=== PATIENT | male | born 1950 ===

== ENCOUNTER 2017-02-03 14:02 | Inpatient (IN) | payer OTHER ==
[~2017-02-03] VITALS: Ht 172.7 cm; Wt 77.8 kg
[2017-02-03] VITALS (13 sets, daily range): BP systolic 92–200; BP diastolic 49–157; PULSE 78–141; RESP 18–26; O2SAT 94–100
[~2017-02-03 14:02] MED LIST: Vecuronium 1,000 mCg/mL 10 mL Inj IV ONE; fentaNYL-PF 50 mCg/mL 2 mL Inj IVPUSH ONE
[2017-02-03] MEDS ORDERED: fentaNYL-PF 50 mCg/mL 2 mL Inj ONE (14:03)
[2017-02-03] MEDS ORDERED: Propofol 10,000 mCg/mL 100 mL Inj ONE (14:07)
[2017-02-03] MEDS ORDERED: 0.9% Sodium Chloride 1,000 ML IV ONE ×3 (14:12→21:40)
--- NOTE | 2017-02-03 14:12 | ED.REPORT ---
HPI-Altered Mental Status Date of Service February 03, 2017 ED Provider: Dr. Carbajal Pt is a 66 year old male presenting to the ED via EMS after being found in the park in an altered mental status. He was found in the bushes at the park eating bushes and leaves. Pt told medics he was looking for his bike after he ate breakfast. When medics advised the pt that his bike was not in the bushes he became aggressive and agitated. Pt was given 300mg Ketamine by medics, and 5 of versed. Pt arrives to the ED unresponsive but agitated. Medics found a bag of marijuana in the pt's pocket. Pt has one prior visit in 2005 for EtOH intoxication. Nursing Notes Stated Complaint: MENTAL HEALTH EVAL Chief Complaint: Critical Care/Intubated Nursing Notes Reviewed: Yes General Time Seen by MD: 13:58 Chief Complaint Not acting right Hx Obtained From: EMS Unable to Obtain Hx: Mental status Arrived By: Ambulance Sudden in Onset?: Yes Onset Occurred: Onset unknown Symptom Duration: Duration unknown Past Medical History Past Medical History unknown Past Surgical History unknown Smoking History Unknown if Ever Smoker Ambulatory Status Independent Review of Systems Unable to Obtain ROS Patient condition, Mental status Physical Exam Physical Exam Notes: Unkempt agitated male, does not engage in interview, does not seem purposeful, mumbling verbalizations Initial Vital Signs Vital Signs (First) Date Time Temp Pulse Resp B/P Pulse Ox O2 Delivery O2 Flow Rate FiO2 02/03/17 14:13 39.4 141 26 200/105 100 Mechanical Ventilator TEMP:39.4 HR:144 BP:200/105 O2:98% RESP RATE:21 Initial VS: Reviewed Abdomen / GI: No distention Extremities: Vascular intact, Neuro intact, No swelling Skin: Warm, Dry General/Constitutional: Pt sedated Head / Eyes: Atraumatic, PERRL Neck: Atraumatic, No adenopathy Respiratory / Chest: Breath sounds NL, Breath sounds = bilat, No respiratory distress Respiratory: Pt intubated Cardiovascular: Heart sounds NL, No murmurs Heart Rate / Rhythm: Positive: Tachycardia ENT: Atraumatic, Airway patent dry MM Abdomen: Non-tender, No guarding exam unreliable due to mental status Back: Atraumatic, Inspection NL Skin: Color NL, No rash, Warm, Dry Upper Extremity / MS: No swelling, Neurologic intact, Vascular intact Lower Extremity / Pelvis / MS: No swelling, Neurologic intact, Vascular intact Interpretation & Diagnostics Lab Results Interpretation Result Diagram: 02/03/17 1500 02/03/17 1500 Test 02/03/17 14:14 02/03/17 15:00 02/03/17 15:50 Urine Color Yellow (YELLOW) Urine Appearance Clear (CLEAR,HAZY) Urine pH 5.5 (5.0-8.0) Urine Specific Mcdavid 1.025 (1.003-1.035) Urine Protein 30mg/dL (NEG,TRACE) Urine Glucose (UA) 100mg/dL (NEGATIVE) Urine Ketones 15mg/dL (NEGATIVE) Urine Occult Blood Negative (NEGATIVE) Urine Nitrite Positive (NEGATIVE) Urine Bilirubin Negative (NEGATIVE) Urine Urobilinogen 2.0mg/dL (NORMAL) Urine Leukocyte Esterase Negative (NEGATIVE) Urine RBC 0-2/hpf (0-2) Urine WBC 0-5/hpf (0-5) Urine Epithelial Cells Few/hpf (NONE-MOD) Urine Crystals None seen (NONE SEEN) Urine Bacteria Few/hpf (NONE-FEW) Urine Hyaline Casts None/lpf (NONE) Urine Granular Casts None seen (NONE SEEN) Urine Waxy Casts None seen (NONE SEEN) Urine Red Blood Cell Casts None seen (NONE SEEN) Urine White Blood Cell Casts None seen (NONE SEEN) Urine Mucus Present (None Seen) Urine Trichomonas None seen (NONE SEEN) Urine Yeast None (NONE SEEN) Urinalysis Comment None Urine Culture Reflexed Indicated White Blood Count 10.5th/mm3 (3.8-10.1) Red Blood Count 4.26mil/mm3 (4.40-5.80) Hemoglobin 12.1g/dL (13.8-17.2) Hematocrit 36.9% (41.0-50.0) Mean Corpuscular Volume 86.6fL (81-100) Mean Corpuscular Hemoglobin 28.4pg (27.0-35.0) Mean Corpuscular Hemoglobin Concent 32.8% (32.0-37.0) Red Cell Distribution Width 15.5% (12.3-15.4) Platelet Count 122bil/L (150-400) Neutrophils (%) (Auto) 82.3% (40-74) Lymphocytes (%) (Auto) 4.6% (14-46) Monocytes (%) (Auto) 12.7% (4-12) Eosinophils (%) (Auto) 0% (0-5) Basophils (%) (Auto) 0.1% (0-3) Sodium Level 137mEq/L (134-144) Potassium Level 4.0mEq/L (3.5-5.2) Chloride Level 99mEq/L (97-108) Carbon Dioxide Level 14mmol/L (18-29) Blood Urea Nitrogen 25mg/dL (8-27) Creatinine 1.04mg/dL (0.76-1.27) Estimat Glomerular Filtration Rate 76mL/min (>59) Glucose Level 108mg/dL (60-99) Lactic Acid Level 2.8mmol/L (0.4-2.0) Calcium Level 8.8mg/dL (8.5-10.1) Magnesium Level 1.9mg/dL (1.6-2.6) Total Bilirubin 2.4mg/dL (0.0-1.2) Aspartate Amino Transf (AST/SGOT) 218U/L (0-50) Alanine Aminotransferase (ALT/SGPT) 89U/L (0-44) Alkaline Phosphatase 109U/L (25-160) Total Creatine Kinase 1182U/L (21-232) Total Protein 7.4g/dL (6.4-8.4) Albumin 3.6g/dL (3.4-5.0) Salicylates Level < 3.0ug/mL (30-250) Acetaminophen Level < 15.0ug/mL Rx (10-25) Alcohols < 10mg/dL (0-10) ECG Interpretation ECG Interpretation: Sinus tachycardia. RBBB. Inferior Q waves. Time: 14:27 Interpreted by: ED physician Abnormal Rate: 130 (138) ABG Interpretation ABG Interpretation: 7.313/34/165/16.9 metabolic acidosis X-Ray Chest Interpretation Chest Xray Interpretation: IMPRESSION: ET tube approximately 1.8 cm superior to the carlos and could be pulled back approximately 2 cm. Dictated by: Lesley Cee MD, PhD on 02/03/2017 at 14:39 View: Portable, 1 view Interpretation / Wet Read by: Interpret - Radiologist CT Head Interpretation IMPRESSION: No acute intracranial disease process. Dictated by: Lesley Cee MD, PhD on 02/03/2017 at 14:56 Study: Head CT no contrast Interpretation / Wet Read by: Interpret - Radiologist Procedures Intubation Intubation Procedure: Equal breath sounds, quiet over the stomach post procedure. Time: 14:09 Procedure Performed by: ED physician Consent / Setup / Site Prep: No consent - emergent, Time-out performed, Oxygen administered, Pulse oximeter applied, register clerk applied, Hand hygiene observed, Stand sterile technique Patient Position: Neutral position Procedural Sedation/Analgesia: Analgesia: Fentanyl (100mcg) Neuromuscular Agent: Succinylcholine (140) ET Confirmation: Direct visualization Secured / Marked: Tube marked at teeth (23) Post-Procedure: Condition improved, Tolerated procedure well, Patient stable Lumbar Puncture Text / Dict Note: Clear CSF. Time: 15:25 Procedure Performed by: ED physician Consent / Setup / Site Prep: No consent - emergent, Time-out performed, Hand hygiene observed, Stand sterile technique, Sterile drapes applied, Patient left lateral Skin Preparation Agent: Betadine Local Anesthesia: Lidocaine 1% LP Needle Gauge: 22 gauge Inserted Needle at: L3 L4 Post-Procedure / Complications: Antibiotic oint applied, Dressing applied, No complications, Tolerated procedure well, Patient stable Re-Eval/Medical Decision Med Decision/Clinical Course Face to face assessment on arrival before being placed in restraints. Urine toxicology shows positive for marijuana, methamphetamine, and amphetamines 66-year-old male with presenting with acute agitation and bizarre behavior. This seems likely related to amphetamine abuse, unfortunately he is completely undesirable by exam or history. Also noted to be febrile. No source is presently identified, CSF labs are pending does have findings consistent with urinary tract infection however is very unimpressive does not have a pneumonia on chest x-ray. He was intubated shortly after arrival due to his acute intractable agitation, hydrated aggressively with concern for rhabdomyolysis and sepsis. Blood cultures have been obtained and they been covered with Rocephin and vancomycin. He has a mildly elevated AST ALT and bilirubin, because of his completely undesirable abdomen I ordered an ultrasound, the patient was moved to the ICU with this pending, this is discussed with Dr. Walter. Re-Evaluation/Progress #1: Time of Eval: 14:01 Patient Status: Condition improved Re-Evaluation/Progress Note: Pt put in restraints and intubated. 140 succ, 100micrograms fentanyl. Re-Evaluation/Progress #2: Time of Eval: 14:24 Patient Status: Condition improved Re-Evaluation/Progress Note: Pt getting Propofol drip placed. Re-Evaluation/Progress #3: Time of Eval: 14:33 Patient Status: Condition improved Re-Evaluation/Progress Note: Checked tube placement with x ray. Re-Evaluation/Progress #4: Time of Eval: 15:14 Patient Status: Condition improved Re-Evaluation/Progress Note: Pt quietly sedated. Will perform lumbar puncture. Consultation : Referral / Consult Name: Onel Walter MD Consulted With: Hospitalist Call Returned at: 16:11 Lowerator Operator: Will see patient, Agrees with plan, Accepts admit Note: Get an ultrasound. Counseled Regarding: Diagnosis, Lab results, Need for follow-up, When/why to return to ED Patient Discharge & Departure Impression: Primary Impression: Altered mental status Altered mental status type: unspecified Qualified Code: R41.82 - Altered mental status, unspecified Additional Impressions: Rhabdomyolysis Rhabdomyolysis type: non-traumatic Qualified Code: M62.82 - Rhabdomyolysis Amphetamine abuse Disposition: ADMITTED TO HOSPITAL Discharge Condition All VS Reviewed: Yes Condition: Improved Crit Care Except Billable Proc Time Spent: 30-74 minutes Services Performed: Patient management by me, Time spent at bedside, Reviewing test results, Reviewing imaging, Discussing patient care, Documentation in record Scribe Attestation Portions of this note were transcribed by Kelly Herrera. I, Dr. Carbajal personally performed the history, physical exam and medical decision-making; I reviewed and confirmed the accuracy of the information in the transcribed note. Signed by : Wendy Gao, 02/03/17 at 1626. Mario Carbajal MD February 03, 2017 14:12 KELLY HERRERA February 03, 2017 14:22
[2017-02-03] MEDS ORDERED: Propofol Inj 1,000,000 MCG in IV Premix 1 EACH IV SCH (14:15)
[2017-02-03] MEDS ORDERED: Vecuronium 1,000 mCg/mL 10 mL Inj ONE (14:31)
[2017-02-03 14:32] LABS: APPEARANCE,URINE CLEAR (CLEAR,HAZY); COLOR,URINE YELLOW (YELLOW); OCCULT BLOOD,URINE NEGATIVE (NEGATIVE); PH,URINE 5.5 (5.0-8.0)
--- NOTE | 2017-02-03 14:41 | DRSVH ---
PROCEDURE: X-RAY CHEST ONE VIEW, PORTABLE ([id number]) INDICATIONS: post intubation TECHNIQUE: One view of the chest was acquired. COMPARISON: None. FINDINGS: Surgical changes and devices: ET tube projects approximately 1.8 cm superior to the carlos. G-tube crosses the GE junction. Lungs and pleura: No pleural effusions or pneumothorax. Lungs are clear. Mediastinum: Mediastinal contours appear normal. Heart size is normal. Bones and chest wall: No suspicious bony lesions. Overlying soft tissues appear unremarkable. IMPRESSION: ET tube approximately 1.8 cm superior to the carlos and could be pulled back approximate ly 2 cm. Dictated by: Lesley Cee MD, PhD on 02/03/2017 at 14:39 Approved by: Lesley Cee MD, PhD on 02/03/2017 at 14:40
[2017-02-03] MEDS: Propofol Inj 1,000,000 MCG in IV Premix 1 EACH IV SCH ×4 (14:50→22:48)
--- NOTE | 2017-02-03 15:01 | DRSVH ---
PROCEDURE: CT BRAIN WITHOUT CONTRAST ([id number]) INDICATIONS: altered mental status TECHNIQUE: Noncontrast 4.5 mm thick angled axial sections acquired from the foramen magnum to the vertex, with c oronal reformats. COMPARISON: None. FINDINGS: Image quality: Excellent. CSF spaces: Basal cisterns are patent. No extra-axial fluid collections. The ventricles are symmet kenyetta in size and shape. Brain: No intracranial bleeds or masses. There is cerebral volume loss for age, with resultant vent ricular and sulcal prominence. There are periventricular and deep white matter chronic small vessel ischemic changes. There is intracranial internal carotid artery atherosclerosis. Skull and face: Calvarium and visualized facial bones appear intact, without suspicious lesions. Sinuses: Visualized sinuses and mastoids are clear. IMPRESSION: No acute intracranial disease process. Dictated by: Lesley Cee MD, PhD on 02/03/2017 at 14:56 Approved by: Lesley Cee MD, PhD on 02/03/2017 at 14:59
--- NOTE | 2017-02-03 15:02 | ABG ---
DateTimeAnalyzed 14:58:00 -_ pH ____7.313 - 7.350 7.450 pCO2 ___34.4__ -mmHg 35.0 45.0 pO2 165 -mmHg 69.0 116 HCO3- ___16.9__ -mmol/L 22.0 26.0 ABE ___-8.0__ -mmol/L -2.0 2.0 tHb ___12.0__ -g/dL O2Hb ___97.0__ -% COHb ____0.7__ -% MetHb ____1.2__ -% sO2 ___98.9__ -% 25.0 FIO2 ___60.0__ -% Drawn By LT - Date/Time Notified____ 15:02:00 -_ Notified By LT - Notified Whom _DR SLACK - B 763 -mmHg tO2 ___16.7__ -Vol% Juliano test _Positive -
[2017-02-03 15:27] LABS: Mean Corpuscular Hemoglobin 28.4 pg (27.0-35.0); Mean Corpuscular Volume 86.6 fL (81-100)
[2017-02-03 15:28] LABS: BASOPHILS % (AUTO) 0.1 % (0-3); EOSINOPHILS % (AUTO) 0 % (0-5); MONOCYTES % (AUTO) 12.7 % (4-12); NEUTROPHILS % (AUTO) 82.3 % (40-74); Platelet Count 122 bil/L (150-400)
[2017-02-03 15:43] LABS: Creatine Kinase 1182 U/L (21-232); Magnesium 1.9 mg/dL (1.6-2.6)
[2017-02-03] MEDS ORDERED: Vancomycin Inj 1,000 MG in IV Premix 1 EACH IV ONE (15:55)
[2017-02-03] MEDS ORDERED: cefTRIAXone Inj 2,000 MG in Dextrose 5% Minibag Plus 50 ML IV ONE (15:55)
[2017-02-03] MEDS ORDERED: Ondansetron 2 mg/mL 2 mL Inj IVPUSH PRN ×2 (16:25→17:45)
--- NOTE | 2017-02-03 17:03 | PCM.HPMED ---
Subjective Date of Service February 03, 2017 Primary Provider: Admitting Physician: Onel Walter MD Primary Care Physician: Thaddeus Attending Physician: Onel Walter MD Admit Status: From the Emergency Department Chief Complaint: Altered mental status History of Present Illness: Mr. Baldemar Patton is a 66-year-old gentleman with known past medical history significant only for alcohol abuse who was brought to the [facility] Emergency Department after being found in a local park eating shrubbery. History was obtained from Emergency Department Physician report only, as patient was sedated, paralyzed, and intubated at time of our meeting. Per that record, the patient told medics that he was looking for his bicycle after eating breakfast. He then became belligerent and was sedated with 300 mg ketamine and 5 mg of midazolam. He arrived in the Emergency Department unresponsive and agitated. Patient was subsequently paralyzed and intubated for his safety and for the safety of staff while he underwent further evaluation for the cause of his acute encephalopathy. Medics reported finding a bag of what looked like marijuana in his pocket. Mr. Bentley's only other visit to [facility] was in 2005 for acute alcohol intoxication, fall, and left elbow injury. . Review of Systems: Unable to obtain due to patient's encephalopathy. . Home Medications Unknown and unable to review due to patient's acute encephalopathy initially and current intubation and sedation. . PMH Unknown and unable to review due to patient's acute encephalopathy initially and current intubation and sedation. . Surgical History Unknown and unable to review due to patient's acute encephalopathy initially and current intubation and sedation. . Family History Unknown and unable to review due to patient's acute encephalopathy initially and current intubation and sedation. . Social History Occupation: Unknown Hx Alcohol Use: Yes (In 2006, at least; current status unknown) Hx Substance Use: Yes (Bedside urine tox dip positive for marijuana, methamphetamine, and amphetamine) Smoking Status: Unknown if Ever Smoker Living Arrangement: Other (Unknown) Exam Vital Signs Vital Sign - Last Date Time Temp Pulse Resp B/P Pulse Ox O2 Delivery O2 Flow Rate FiO2 02/03/17 16:03 110 24 140/84 94 Mechanical Ventilator 02/03/17 15:30 37.8 Exam General: Intubated, sedated, disheveled near elderly gentleman HEENT: Normocephalic, atraumatic. External ears without defect. Anicteric sclerae, moist conjunctivae, and no lid lag. Neck: No jugular venous distension. No bruits. No lymphadenopathy or thyromegaly. Cardiovascular: Regular rate and rhythm with no murmurs, rubs, or gallops appreciated Pulmonary: Clear to auscultation bilaterally with no crackles, wheezes, or rhonchi. Ventilated. Abdomen: Bowel tones present. Soft, nontender, nondistended. No hepatosplenomegaly or masses appreciated. Extremities: No clubbing, cyanosis, edema, or lymphadenopathy appreciated. Skin: Normal temperature, turgor, and texture; numerous scratches, cuts, patches of discoloration. Multiple dirt caked areas. Neurological: Unable to assess due to sedated condition. Psychiatric: Unable to assess due to sedated condition. Lab and Diagnostics Labs Total bilirubin: 2.4 AST: 218 ALT: 89 Total creatine kinase: 1182 Albumin: 3.6 Negative salicylates, acetaminophen, and alcohols Urinalysis notable for positive nitrite . Result Diagram: 02/03/17 1500 02/03/17 1500 Microbiology Blood, urine, and cerebrospinal fluid cultures pending. . X-Rays, CTs and MRIs CT BRAIN WITHOUT CONTRAST IMPRESSION: No acute intracranial disease process. Dictated and approved by: Lesley Cee MD, PhD on 02/03/2017 at 14:56 X-RAY CHEST ONE VIEW, PORTABLE FINDINGS: Surgical changes and devices: ET tube projects approximately 1.8 cm superior to the carlos. G-tube crosses the GE junction. Lungs and pleura: No pleural effusions or pneumothorax. Lungs are clear. Mediastinum: Mediastinal contours appear normal. Heart size is normal. Bones and chest wall: No suspicious bony lesions. Overlying soft tissues appear unremarkable. IMPRESSION: ET tube approximately 1.8 cm superior to the carlos and could be pulled back approximately 2 cm. Dictated and approved by: Lesley Cee MD, PhD on 02/03/2017 at 14:39 . 12-lead ECG ECG pending . Assessment & Plan Mr. Baldemar Patton is a 66-year-old gentleman with history of alcohol abuse and current polysubstance use who was brought to the [facility] Emergency Department after being found violating shrubbery. Patient was aggressive and combative; subsequently sedated, paralyzed, and intubated for his and staff safety during further evaluation of acute encephalopathy. Acute encephalopathy, present on admission. Active. -Likely secondary to polysubstance use, including amphetamine, methamphetamine, and marijuana -Ongoing evaluation of hepatic encephalopathy, including abdominal ultrasound and ammonia level -Infectious etiology less likely given presenting labs; further evaluation pending and empiric antibiotics (ceftriaxone and vancomycin) continuing -Attempt to wake patient tomorrow for possible extubation -Monitor closely and treat as necessary for withdrawal symptoms Polysubstance use, present on admission. Active. -As above, amphetamine, methamphetamine, and marijuana present on urine drug screen -Continue supportive care during episode of acute intoxication -Chemical dependency screening and counseling as able/desired Rhabdomyolysis, present on admission. Active. -Meets criteria with creatine kinase elevated 5 times normal -Continue aggressive fluid resuscitation -Monitor renal function closely Elevated liver enzymes, present on admission. Active. -Likely secondary to substance abuse and/or viral hepatitis -Ultrasound and laboratory testing pending, including viral hepatitis panel and PT/INR Lactic acidosis on the present on admission. Active. -Likely secondary to acute intoxication, medication administration -Continue aggressive fluid resuscitation -Monitor closely until resolution Leukocytosis, mild, present on admission. Active. -Likely due to margination related to activity surrounding acute intoxication; less likely infectious -Continue to monitor closely; further workup pending Anemia, present on admission. Active. -Likely multifactorial, due to possible alcohol dependence, poor nutritional status -Continue to monitor with further evaluation and treatment as needed Thrombocytopenia, present on admission. Active. -Possibly secondary to ongoing alcohol dependence -Continue to monitor closely History of alcohol abuse, present on admission. -Previous Emergency Department in 2005 was for acute alcohol intoxication and injury related to same -Elevated liver enzymes consistent with continuous alcohol dependence -Low threshold for the addition of benzodiazepine for potential withdrawal Multiple skin lesions, present on admission. Active. -Full assessment by Nursing pending -Wound Care as needed -GI prophylaxis with H2 denise -Nothing by mouth currently -DVT prophylaxis as below -No acetaminophen ordered, given elevated liver function tests Patient status: Patient was admitted under inpatient status with expected length of stay greater than 2 midnights for complexity of treatment plan, risk of adverse event, and severity of presenting symptoms. . Pain Evaluation: Adequate Pain Control GI Prophylaxis: H2 denise VTE Prophylaxis Indicated: CCU Admission VTE Prophylaxis: Sub-Q Heparin (Unfractionated) VTE Mechanical Devices: Intermittant Pneumatic CD Resuscitation Status: CPR: Attempt Resuscitation Time spent 60 minutes of critical care time was provided by me for evaluation and patient stabilization. . Onel Walter MD February 03, 2017 17:02
[2017-02-03 17:13] LABS: APPEARANCE,CSF CLEAR (CLEAR); COLOR,CSF COLORLESS (COLORLESS); WHITE BLOOD CELL,CSF 1 /mm3 (0-5)
--- NOTE | 2017-02-03 17:18 | ABG ---
DateTimeAnalyzed 16:55:00 -_ pH ____7.339 - 7.350 7.450 pCO2 ___31.3__ -mmHg 35.0 45.0 pO2 131 -mmHg 69.0 116 HCO3- ___16.4__ -mmol/L 22.0 26.0 ABE ___-8.0__ -mmol/L -2.0 2.0 tHb ___11.3__ -g/dL O2Hb ___97.4__ -% COHb ____0.5__ -% MetHb ____1.1__ -% sO2 ___99.0__ -% 25.0 FIO2 ___50.0__ -% Drawn By RC - B 762 -mmHg tO2 ___15.7__ -Vol%
[2017-02-03] MEDS ORDERED: Senna-Docusate 8.6-50 mg Tablet PO PRN (17:45)
[2017-02-03] MEDS ORDERED: Alum-Mag Hydrox-Simeth 30 mL Suspension PO PRN (17:45)
[2017-02-03] MEDS ORDERED: Polyethylene Glycol (PEG) 17 Gm Powder PO PRN (17:45)
[2017-02-03] MEDS ORDERED: fentaNYL-PF 50 mCg/mL 2 mL Inj IVPUSH PRN (17:50)
--- NOTE | 2017-02-03 18:15 | NUR ---
ADMIT Patient intubated in ER and transferred to CCU 2013. Patient appears to be homeless, unknown family or pharmacy. Admit was done as such with limited information, unable to gather information from patient at this time.
--- NOTE | 2017-02-03 18:19 | NUR ---
Admit to CCU Pt arrived to CCU at 1645, pt intubated, sedated with propofol; restrained to BUE soft restraints BLE locking restraints. BLE restraints d/c'd upon arrival, bilateral wrist restraints remain in place. Pt extremely agitated with minimal stimulation, requiring multiple boluses of propofol. Pt reaches for ETT, lacey, and PIVs when not sedated adequately. Vent settings: 50%, 5, 500, 18; SpO2 98%. Tele: SR/ST with BBB, rate 90s to low-100s. Lacey draining dark lilia urine. Pt with scratches/scrapes all over body, no drainage from them. BLE pitting edema from ankles to just below knees. Palpable DPs.
[2017-02-03 19:06] LABS: Magnesium 2.1 mg/dL (1.6-2.6)
[2017-02-03] MEDS: fentaNYL 2,500 mCg/250 mL 2,500 MCG in IV Premix 1 EACH IV PRN (19:10)
[2017-02-03 19:30] LABS: INR 1.25 ratio
--- NOTE | 2017-02-03 19:46 | PCM.PHAPRO ---
Progress Date of Service: February 03, 2017 Altered mental status Dx: empiric vancomycin PMH: alcohol abuse, anemia goal 15-20 start vancomycin 750mg IV q12h draw next vancomycin trough at 430AM on 02/05 per pharmacy Kenny Yi February 03, 2017 19:46
[2017-02-03] MEDS: cefTRIAXone Inj 2,000 MG in Dextrose 5% Minibag Plus 50 ML IV SCH (20:18)
[2017-02-03] MEDS: Chlorhexidine 0.12% 15 mL Oral Solution MT SCH ×2 (20:28→23:53)
[2017-02-03] MEDS: 0.9% Sodium Chloride 1,000 ML IV SCH (21:46)
[2017-02-04] VITALS (11 sets, daily range): BP systolic 100–123; BP diastolic 48–63; PULSE 67–73; RESP 18; O2SAT 98–100
[2017-02-04] MEDS: Propofol Inj 1,000,000 MCG in IV Premix 1 EACH IV SCH ×3 (02:30→10:03)
--- NOTE | 2017-02-04 04:22 | NUR ---
Agitation/Hypotension, low uo P: Pt had intermittent agitation with any activity, initially on propofol gtt only, SBP 90's, map 58-60, urine output low from lacey. i: titrated up propofol gtt (inadequate) and added fentanyl gtt, Notified Dr. Veronica with new orders, given 1L NS Bolus and started on IVF maintenance @ 125 cc/hr. E: MAP improved >65, increased uo from lacey. S: bilateral soft wrist restraints on.
[2017-02-04] MEDS ORDERED: Vancomycin Inj 750 MG in 0.9% Sodium Chloride 250 ML IV SCH (05:00)
[2017-02-04] MEDS: Chlorhexidine 0.12% 15 mL Oral Solution MT SCH ×5 (05:06→19:59)
--- NOTE | 2017-02-04 05:23 | ABG ---
DateTimeAnalyzed 05:18:00 -_ pH ____7.416 - 7.350 7.450 pCO2 ___28.0__ -mmHg 35.0 45.0 pO2 210 -mmHg 69.0 116 HCO3- ___17.7__ -mmol/L 22.0 26.0 ABE ___-5.5__ -mmol/L -2.0 2.0 tHb ____9.9__ -g/dL O2Hb ___97.8__ -% COHb ____0.7__ -% MetHb ____1.1__ -% sO2 ___99.6__ -% 25.0 FIO2 ___50.0__ -% PRVC 18 - PEEP ____5.0__ -cmH2O Set_RR ___18.0__ -b/min Vt __500.0__ -L Drawn By MM - Date/Time Notified____ 05:22:00 -_ Spontaneous_RR ___18.0__ -b/min Oxygen Device 1 VENTILATOR - Notified By MM - Notified Whom BIJAN,HARDEN, RN.____ - B 762 -mmHg tO2 ___14.1__ -Vol%
[2017-02-04] MEDS: 0.9% Sodium Chloride 1,000 ML IV SCH ×3 (05:50→22:06)
[2017-02-04] MEDS: fentaNYL 2,500 mCg/250 mL 2,500 MCG in IV Premix 1 EACH IV PRN (07:41)
[2017-02-04] MEDS ORDERED: Vancomycin Dose per Pharmacist XX SCH (08:30)
[2017-02-04 08:58] LABS: Mean Corpuscular Hemoglobin 28.3 pg (27.0-35.0); Mean Corpuscular Volume 88.5 fL (81-100); Platelet Count 73 bil/L (150-400)
[2017-02-04 09:03] LABS: BASOPHILS % (AUTO) 0.2 % (0-3); EOSINOPHILS % (AUTO) 0.4 % (0-5); MONOCYTES % (AUTO) 10.7 % (4-12)
--- NOTE | 2017-02-04 09:03 | DRSVH ---
PROCEDURE: US ABDOMEN INDICATIONS: elevated bili, critical illness TECHNIQUE: Real-time scanning was performed of the abdominal and retroperitoneal organs, with image documentatio n. COMPARISON: None. FINDINGS: Liver length: 17.41 cm Gallbladder Wall Thickness: 2.70 mm CHD: 3.40 mm CBD: 5 mm Spleen length: 12.30 cm Right kidney length: 11.37 cm Left kidney length: 11.38 cm Aorta(Proximal): 2.48 cm Aorta(Mid): Obscured Aorta(Distal): 2.31 cm Liver: Liver is normal in size. Diffusely increased hepatic echotexture. Gallbladder: Cholelithiasis and gallbladder sludge. Although no gallbladder wall measurement was obta ined, visually the gallbladder wall is normal. No pericholecystic fluid. Sonographic Hendricks's sign no t obtained. Biliary ducts: Intrahepatic bile ducts are non-dilated. Extrahepatic bile duct caliber is normal. Normal is 6-7 mm or less in diameter, or 10 mm or less post-cholecystectomy. Pancreas: Visualized portions of the pancreas are sonographically normal. Spleen: Spleen is normal in size and homogeneous in echotexture. Kidneys: Kidneys are normal in size and echotexture. No hydronephrosis or nephrolithiasis. No jabari d masses. Benign 2.5 cm simple right renal cyst. Aorta: Visualized aorta is normal in caliber at less than 3 cm. Iliacs: Proximal common iliac arteries are normal in caliber at less than 2.5 cm. IVC: Intrahepatic inferior vena cava is patent. Miscellaneous: No free abdominal fluid. IMPRESSION: 1. Study is limited. There is cholelithiasis with no sonographic evidence of acute cholecystitis. 2. Fatty infiltration of an otherwise sonographically normal liver. Dictated by: Claudio Arambula M.D. on 02/04/2017 at 8:59 Approved by: Claudio Arambula M.D. on 02/04/2017 at 9:02
[2017-02-04 09:37] LABS: Magnesium 2.1 mg/dL (1.6-2.6); Phosphorus 2.4 mg/dL (2.5-4.9)
[2017-02-04] MEDS: LORazepam 100 mg/100 mL NS 100 MG in IV Premix 1 EACH IV SCH (10:03)
--- NOTE | 2017-02-04 10:33 | CONS ---
[address] [address] CONSULTATION REPORT PATIENT: CHELSY BASURTO : 1950 MR#: [id number] ADMIT: 02/03/2017 JOB ID: [id number] DATE OF SERVICE: 02/04/2017 REQUESTING PHYSICIAN: Patito Herrera DO REASON FOR CONSULTATION: Polysubstance overdose. HISTORY OF PRESENT ILLNESS: A 66-year-old, male, found eating grass and weeds at a local park. He was described as being agitated. Given ketamine and Versed. Intubated for his safety and the safety of the staff while undergoing further evaluation. Described as finding a bag of what appeared to be marijuana in his pocket. No further history is available. None is available from the patient who is currently sedated and intubated on a ventilator. Did require hospitalization at [facility] in 2005 for acute alcohol intoxication and fall. REVIEW OF SYSTEMS: Unable to obtain. MEDICATIONS: Unable to obtain. PAST MEDICAL HISTORY: Unable to obtain. No other history available. OBJECTIVE: Temperature 36.8. Pulse low 70s. Respiratory rate 18 with ventilator set at 18. Blood pressure 100/48. O2 sat on FiO2 35%, PEEP of 5 is 98%. The patient has received about 4.5 L since his admission last evening. General appearance disheveled, malodorous male, sedated on the ventilator. Does have some purposeless movements when examined. Eyes pupils pinpoint. No scleral icterus. Nose and throat could not be examined. Chest fairly good breath sounds bilaterally. Lung marti clear. Heart regular rhythm. Heart tones normal, no S3 or murmur. Abdomen is soft, nondistended. Liver edge felt about 2 cm below the right costal margin. Spleen not palpable. Extremities excoriations on the legs. Cleanliness issues. No tracks. LABORATORY DATA: White count of 10,500 twelve hours ago, currently 5.5, with 69 polymorphonuclears, 19 lymphs, 10 monocytes. Hemoglobin 10.1 down from 12.1 in the past 12 hours. Platelet count has dropped from 122-73,000 in that time as well. Lab on admission shows a sodium 137, potassium 4, chloride 99, CO2 is 14, BUN 25, creatinine 1. Glucose 108. Lactic acid is 2.8. Calcium 8.8 with albumin 3.6, magnesium 1.9. Total bilirubin mildly elevated 2.4. AST moderately elevated 218. ALT mildly elevated at 89. Alkaline phosphatase normal at 109. CK is 1182. Total protein 7.4 with albumin of 3.6. Pre-albumin is 9. Procalcitonin 0.3. ProTime is 13.4 seconds with an INR of 1.25. Screen for salicylates, acetaminophen, and alcohol are all negative with undetectable levels present. Spinal tap shows white cell count 1. CSF glucose was 73. CSF total protein was 26. Urine for Legionella antigen is negative. DIAGNOSTIC STUDIES: Chest x-ray shows the lungs to be clear. Cardiac silhouette is normal. The endotracheal tube 1.8 cm above the carlos. Brain CT shows no acute intracranial disease processes. Some cerebral volume loss for age. Abdominal ultrasound shows cholelithiasis and gallbladder sludge. No pericholecystic fluid. Visually gallbladder wall was normal. Intrahepatic bile ducts are nondilated and extrahepatic bile duct caliber is normal. Pancreas visualized as normal as is spleen and kidneys. ASSESSMENT: 1. Polysubstance overdose. Toxicology screen positive for amphetamine, methamphetamine, and marijuana. However, the patient has an agitated delirium most consistent with methamphetamine overdose. The treatment is supportive at this point. Lactate has been monitored and has fallen to 0.8. Will need to follow the rhabdomyolysis. a. Given the alcohol history of alcohol abuse and the probable methamphetamine overdose I think benzodiazepines would be helpful to control his behavior. Apparently was getting propofol which was not working. Fentanyl was added to control his behavior. Might do better with the benzodiazepines. b. Need to follow his electrolytes as you are doing. Also follow the CK and lactate. Also need to keep an eye on magnesium and potassium as well as probably phosphorus. 2. Elevated ammonia level. Probably speaks to some degree of hepatic encephalopathy. Lactulose is being added to his regimen. 3. Ventilator support. Agitated in order to safely control his behavior as well as ability to sedate him. Doing reasonably well. He is being over ventilated just a little bit, probably not significantly so and I do not know that we need to change anything at this point. Would merely monitor his acid-base status as we proceed. PLAN: 1. Consider using benzodiazepines instead of propofol. Consider lorazepam in the face of probable liver dysfunction, maybe starting infusion at 2 mg an hour with 0.5-2 mg boluses q. 20-30 minutes until appropriate dose established. 2. Serial CK. 3. Serial blood gases. 4. Sputum for Gram stain, C and S pending. 5. Thiamin. Thank you very much, Dr. Herrera, for asking us to see this most unfortunate individual. Will follow his respiratory and metabolic status closely along with you.
--- NOTE | 2017-02-04 10:49 | NUR ---
NUTRITION ASSESSMENT Assess: 66 YO M admitted to CCU for AMS, rhabdomyolysis, and amphetamine abuse. Pt required mechanical ventilation. Pt has been NPO X 1 day. Possible change from Propofol to benzodiazepines. PMHX: Unknown, ETOH abuse. DIET: NPO. LABS: Cr 0.61, Ca 7.9, Phos 2.4, AST 178, ALT 66, Alb 2.6 MEDICATIONS: Reviewed. Fentanyl, Propofol at 21.6 ml/hr providing 570 kcal/day. GI: No BM noted. SKIN: No issues noted. ANTHROPOMETRICS: Wt: 76.6 kg, BMI 25.7 kg/m2, Admit wt: 76.6 kg. ESTIMATED NEEDS: Vent Calories: 3359-8327 kcal/day (20-25 kcal/kg BW) Protein: 115-138 g/day (1.5-1.8 g/kg BW) Fluids: 5194-6553 ml/day (25-30 ml/kcal) NUTRITION DIAGNOSIS: 1) Inadequate oral intake related to decreased ability to consume sufficient energy as evidenced by NPO/Vent status. INTERVENTION: 1) If pt remains intubated, recommend enteral nutrition of Jevity 1.5 starting at 10 ml/hr, once tolerance established, advance 10 ml q 4 hr to goal rate of 55 ml/hr. At goal TF will provide 1815 kcal, 77 g protein; meeting 100% calorie, 67% protein needs. Consider adding 1 Prosource protein packet 4 X per day to provide 121 g protein; meeting 100% protein needs. Adjust TF goal based on Propofol rate. MONITOR/EVALUATE: NPO/Vent status, nutrition support, Propofol, POC, labs, GI/nutrition status. Follow per high nutrition risk guidelines.
[2017-02-04] MEDS: Lactulose 20 Gm/30 mL 30 mL Syrup TUBE SCH ×2 (10:58→19:59)
[2017-02-04] MEDS ORDERED: Potassium Phos (mEq) Inj 40 MEQ in Dextrose 5% 500 ML IV ONE (11:20)
--- NOTE | 2017-02-04 11:36 | PCM.PNMED ---
Subjective Date of Service February 04, 2017 Subjective Mr. Baldemar Patton is a 66-year-old gentleman with history of alcohol abuse and current polysubstance use who was brought to the [facility] Emergency Department after being found violating shrubbery. Patient was aggressive and combative; subsequently sedated, paralyzed, and intubated for his and staff safety during further evaluation of acute encephalopathy. Admitted to CCU intubated and sedated. Per nursing, patient with intermittent agitation nonresponsive to increase in propofol and fentanyl drip started. Patient hypotensive with SBP in the 90s, MAP 58-60 and low urine output. Received 1L bolus of NS and started on maintenance fluids at 125mls/hr with good response. Exam Vital Signs Vital Sign - Last Date Time Temp Pulse Resp B/P Pulse Ox O2 Delivery O2 Flow Rate FiO2 02/04/17 07:28 71 100/48 98 35 02/04/17 04:03 36.8 18 Mechanical Ventilator Intake and Output 02/03/17 02/03/17 02/04/17 Cumulative From/Thru 15:00 23:00 07:00 02/03/17 14:04 - 02/04/17 05:48 Intake Total 2000 ml 259 ml 2416 ml 4675 ml Output Total 350 ml 475 ml 825 ml Balance 2000 ml -91 ml 1941 ml 3850 ml Intake IV Total 2000 ml 259 ml 2416 ml 4675 ml Output Urine Total 350 ml 450 ml 800 ml Gastric Drainage Total 25 ml 25 ml # Bowel Movements 0 0 Exam General: Intubated and sedated. HEENT: Normocephalic, atraumatic. Anicteric sclerae. Oral mucosa dry/pink Neck: No jugular venous distension, lymphadenopathy or thyromegaly. Cardiovascular: Regular rate and rhythm with no murmurs, rubs, or gallops appreciated Pulmonary: Clear to auscultation bilaterally with no crackles, wheezes, or rhonchi. Abdomen: Soft, nondistended, no hepatosplenomegaly appreciated, bowel tones present Extremities: No edema or cyanosis, multiple scratches, cuts lower ext bilaterally. No erythema or warmth. Skin: Normal temperature, turgor; no rashes or ulcerations. Neurological: Sedated, unable to assess. Psychiatric: Sedated, unable to assess. IVs and Medications Medications Reviewed: Medications were reviewed in detail Lab and Diagnostics Laboratory Tests Test 02/03/17 14:14 02/03/17 15:00 02/03/17 15:50 02/03/17 18:20 Urine Color Yellow (YELLOW) Urine Appearance Clear (CLEAR,HAZY) Urine pH 5.5 (5.0-8.0) Urine Specific [place] 1.025 (1.003-1.035) Urine Protein 30mg/dL (NEG,TRACE) Urine Glucose (UA) 100mg/dL (NEGATIVE) Urine Ketones 15mg/dL (NEGATIVE) Urine Occult Blood Negative (NEGATIVE) Urine Nitrite Positive (NEGATIVE) Urine Bilirubin Negative (NEGATIVE) Urine Urobilinogen 2.0mg/dL (NORMAL) Urine Leukocyte Esterase Negative (NEGATIVE) Urine RBC 0-2/hpf (0-2) Urine WBC 0-5/hpf (0-5) Urine Epithelial Cells Few/hpf (NONE-MOD) Urine Crystals None seen (NONE SEEN) Urine Bacteria Few/hpf (NONE-FEW) Urine Hyaline Casts None/lpf (NONE) Urine Granular Casts None seen (NONE SEEN) Urine Waxy Casts None seen (NONE SEEN) Urine Red Blood Cell Casts None seen (NONE SEEN) Urine White Blood Cell Casts None seen (NONE SEEN) Urine Mucus Present (None Seen) Urine Trichomonas None seen (NONE SEEN) Urine Yeast None (NONE SEEN) Urinalysis Comment None Urine Culture Reflexed Indicated Urine Legionella pneumophilia Ag Negative (Negative) White Blood Count 10.5th/mm3 (3.8-10.1) Red Blood Count 4.26mil/mm3 (4.40-5.80) Hemoglobin 12.1g/dL (13.8-17.2) Hematocrit 36.9% (41.0-50.0) Mean Corpuscular Volume 86.6fL (81-100) Mean Corpuscular Hemoglobin 28.4pg (27.0-35.0) Mean Corpuscular Hemoglobin Concent 32.8% (32.0-37.0) Red Cell Distribution Width 15.5% (12.3-15.4) Platelet Count 122bil/L (150-400) Neutrophils (%) (Auto) 82.3% (40-74) Lymphocytes (%) (Auto) 4.6% (14-46) Monocytes (%) (Auto) 12.7% (4-12) Eosinophils (%) (Auto) 0% (0-5) Basophils (%) (Auto) 0.1% (0-3) Sodium Level 137mEq/L (134-144) Potassium Level 4.0mEq/L (3.5-5.2) Chloride Level 99mEq/L (97-108) Carbon Dioxide Level 14mmol/L (18-29) Blood Urea Nitrogen 25mg/dL (8-27) Creatinine 1.04mg/dL (0.76-1.27) Estimat Glomerular Filtration Rate 76mL/min (>59) Glucose Level 108mg/dL (60-99) Lactic Acid Level 2.8mmol/L (0.4-2.0) 0.9mmol/L (0.4-2.0) Calcium Level 8.8mg/dL (8.5-10.1) Magnesium Level 1.9mg/dL (1.6-2.6) 2.1mg/dL (1.6-2.6) Total Bilirubin 2.4mg/dL (0.0-1.2) Aspartate Amino Transf (AST/SGOT) 218U/L (0-50) Alanine Aminotransferase (ALT/SGPT) 89U/L (0-44) Alkaline Phosphatase 109U/L (25-160) Total Creatine Kinase 1182U/L (21-232) Total Protein 7.4g/dL (6.4-8.4) Albumin 3.6g/dL (3.4-5.0) Salicylates Level < 3.0ug/mL (30-250) Acetaminophen Level < 15.0ug/mL Rx (10-25) Alcohols < 10mg/dL (0-10) CSF Appearance Clear (CLEAR) CSF Color Colorless (COLORLESS) CSF WBC 1/mm3 (0-5) CSF RBC 1/mm3 CSF Mononuclear WBCs % CSF Polynuclear WBCs % CSF Other Cells CSF Glucose 73mg/dL (45-90) CSF Total Protein 26mg/dL (15-45) Ammonia 103ug/dL (18-53) Prealbumin 9mg/dL (20-40) Triglycerides Level 171mg/dL (0-149) Procalcitonin 0.33ng/mL (0.00-0.08) Test 02/03/17 18:45 02/03/17 19:00 02/03/17 21:04 Prothrombin Time 13.4sec (8.1-12.5) Prothromb Time International Ratio 1.25ratio Sodium Level 137mEq/L (134-144) Potassium Level 4.0mEq/L (3.5-5.2) Chloride Level 101mEq/L (97-108) Carbon Dioxide Level 16mmol/L (18-29) Blood Urea Nitrogen 24mg/dL (8-27) Creatinine 0.86mg/dL (0.76-1.27) Estimat Glomerular Filtration Rate 95mL/min (>59) Glucose Level 130mg/dL (60-99) Calcium Level 8.1mg/dL (8.5-10.1) Hepatitis C Comment . Lactic Acid Level 0.8mmol/L (0.4-2.0) Result Diagram: 02/03/17 1500 02/03/17 1900 Microbiology 02/03/17 Blood Culture- pending 02/03/17 Gram Stain - CSF: No polys/organisms see; CSF clear, WBC 1, RBC 1, glucose 73, total protein 26 02/03/17 Streptococcus pneumoniae Ag Screen - negative X-Rays, CTs and MRIs (02/03/17) CT BRAIN WITHOUT CONTRAST IMPRESSION: No acute intracranial disease process. Dictated and approved by: Lesley Cee MD, PhD on 02/03/2017 at 14:56 (02/03/17) X-RAY CHEST ONE VIEW, PORTABLE IMPRESSION: ET tube approximately 1.8 cm superior to the carlos and could be pulled back approximately 2 cm. Dictated and approved by: Lesley Cee MD, PhD on 02/03/2017 at 14:39 (02/04/17) US ABDOMEN IMPRESSION: 1. Study is limited. There is cholelithiasis with no sonographic evidence of acute cholecystitis. 2. Fatty infiltration of an otherwise sonographically normal liver. Dictated and approved by: Claudio Arambula M.D. on 02/04/2017 at 8:59 . 12-lead ECG Sinus tachycardia, rate 130. RBBB. Inferior Q waves. Additional Diagnostics Metabolic acidosis on ABG: pH 7.313, pCO2 34, pO2 165, HCO3 16.9 Lumbar puncture- 15:25 on 02/03/17. ED Physician (Dr. Slack) -Clear CSF noted -Gram stain- No polys/organisms see; CSF clear, WBC 1, RBC 1, glucose 73, total protein 26 Urine toxicology in the ED: positive for marijuana, methamphetamine, and amphetamines. . Assessment & Plan Mr. Baldemar Patton is a 66-year-old gentleman with history of alcohol abuse and current polysubstance use who was brought to the [facility] Emergency Department after being found in a local park eating shrubbery. Patient was aggressive and combative; subsequently sedated, paralyzed, and intubated for his and staff safety during further evaluation of acute encephalopathy. Acute encephalopathy, present on admission. Active. -Likely secondary to polysubstance use and potentially hepatic encephalopathy or occult infection. -Ammonia elevated and hepatosteatosis noted on abdominal US consistent with hepatic encephalopathy. -Hepatitis panel, HIV and QuantiFERON gold - pending -Lactate normalized, procalcitonin 0.38. -Continue ceftriaxone, stop vancomycin as MRSA screen is negative. -Start thiamine for possible Wernicke's, 500mg IV TID x3 days, then 250mg IV x3- 5days -Add lactulose 20gm BID -Change propofol to lorazepam, monitor for symptoms of withdrawal -Continue to titrate down on sedation as tolerated -Pulm/CCU team also following, appreciate recommendations. Polysubstance use, present on admission. Active. -Urine drug screen in the ED positive for amphetamine, methamphetamine, and marijuana -Continue supportive care during acute intoxication/withdrawal. -Chemical dependency screening and counseling as able/desired Rhabdomyolysis, present on admission. Active. -Met criteria with creatine kinase elevated 5 times normal -Received 2L normal saline at presentation. IVFs- NS at 125mls/hr -Creatinine kinase trended up. 500ml bolus of NS now then continue with NS at 125ml/hr -Follow BMP Elevated liver enzymes, present on admission. Active. -Likely secondary to substance abuse and/or viral hepatitis. -Hepatitis panel, HIV- pending -Abd US, as above. -PT/INR 13.4/1.25 -Follow CMP Thrombocytopenia, present on admission. Active. -Likely secondary to ongoing alcohol dependence -Follow CBC Lactic acidosis on the present on admission. Active. -Likely secondary to acute intoxication, medication administration -Continue aggressive fluid resuscitation -Monitor closely until resolution Leukocytosis, mild, present on admission. Resolved. -Likely due to margination related to activity surrounding acute intoxication and possibly infection. -Continue antibiotics, as above. Anemia, present on admission. Active. -Likely multifactorial, due to possible alcohol dependence, poor nutritional status. -Continue to monitor with further evaluation and treatment as needed History of alcohol abuse, present on admission. Active -Previous Emergency Department in 2005 was for acute alcohol intoxication and injury related to same -Elevated liver enzymes consistent with continuous alcohol dependence -Change propofol to lorazepam, as above. Multiple skin lesions, present on admission. Active. -Wound Care as needed High risk medications: IV fentanyl, IV lorazepam -GI prophylaxis with H2 denise -Nothing by mouth currently -DVT prophylaxis as below -No acetaminophen ordered, given elevated liver function tests Disposition: Patient will likely need 2-3 more days of inpatient monitoring pending resolution of acute intoxication, encephalopathy and extubation. GI Prophylaxis: H2 denise VTE Prophylaxis: Sub-Q Heparin (Unfractionated) VTE Mechanical Devices: Intermittant Pneumatic CD Resuscitation Status: CPR: Attempt Resuscitation Attending Statement The patient was seen and examined together with Dr. Herrera on 02-04-17 and I agree with the history, exam and plan as outlined in the note above. Patito Herrera DO February 04, 2017 08:09 Kari Saunders MD February 05, 2017 16:17
--- NOTE | 2017-02-04 13:49 | DRSVH ---
[facility] [address] [place] [address] Echocardiogram Report Name: CHELSY BASURTO Study Date: 02/04/2017 Height: 68 in Hospital Exam Location: [facility] Weight: 169 lb Gender: Male BSA: 1.9 m2 : 1950 Age: 66 yrs BP: 100/55 mmHg Reason For Study: POLYSUBSTANCE ABUSE Ordering Physician: Performed By: Madison CLARKIST [facility] Interpretation Summary Left ventricular wall thickness is mild-moderately increased. Left ventricular systolic function is normal. The ejection fraction is estimated to be 65-70%. There are no obvious focal wall motion abnormalities noted but poor endocardial definition reduces the sensitivity for the detection of such. The right ventricle is normal in size and function. Pulmonary artery pressures cannot be estimated because of the lack of a measurable TR jet velocity. Both atria are normal in size. There is no significant valvular heart disease. There is no obvious valvular vegetation identified on this exam; however, image quality is rather suboptimal. Consider LON if there is a high degree of clinical suspicion for endocarditis and clinically appropriate. The aortic root is normal size. Procedure: A two-dimensional transthoracic echocardiogram with color flow and Doppler was performed. The study quality was technically difficult. There is no prior echocardiogram noted for this patient. A contrast injection of Definity was performed to improve assessment of LV function. The patient was intubated during exam. The patient was in normal sinus rhythm during the exam. Left Ventricle: Left ventricular wall thickness is mild-moderately increased. The left ventricle is normal in size. Left ventricular systolic function is normal. The ejection fraction is estimated to be 65-70%. There are no obvious focal wall motion abnormalities noted but poor endocardial definition reduces the sensitivity for the detection of such. Assessment of diastolic parameters indicates normal left ventricular diastolic function and normal filling pressures. Right Ventricle: The right ventricle is normal in size and function. Atria: Both atria are normal in size. There is no Doppler evidence for an interatrial shunt. Mitral Valve: The mitral valve leaflets are slightly calcified. There is no mitral regurgitation noted. Aortic Valve: The aortic valve is not well visualized. There is no aortic valve stenosis. No aortic regurgitation is present. Tricuspid Valve: The tricuspid valve is not well visualized. Pulmonary artery pressures cannot be estimated because of the lack of a measurable TR jet velocity. Pulmonic Valve: The pulmonic valve is not well visualized. There is no significant valvular heart disease. There is no obvious valvular vegetation identified on this exam. Consider LON if there is a high degree of clinical suspicion for endocarditis and clinically appropriate. Great Vessels: The aortic root is normal size. The ascending aorta is at the upper limits of normal in size. The IVC has a measurement of 25 mm. Inspiratory collapse cannot be assessed because of mechanical ventilation, thus CVP cannot be estimated.. Pericardium/ Pleura There is no pericardial effusion. MMode/2D Measurements & Calculations LVIDd: 4.7 cm RA long axis LVOT diam LVIDs: 3.0 cm LA A2 area: 16.2 cm FS: 36.1 % LA A4 area: 24.9 cm RA area Ao root diam IVSd: 1.4 cm LA length (vol): 6.3 cm LVPWd: 1.3 cm LA vol: 54.7 ml : 17.9 cm asc Aorta LA vol index RA vol: 51.0 mlDiam: 3.3 cm RA : 26.8 mm2 IVC diam: 2.5 cm LV odell. diameter/BSA LV sys. diameter/BSA RVD1 (basal) (cm/m^2): 2.5 (cm/m^2): 1.6 Doppler Measurements & Calculations Ao V2 max MV E max stephan MV E/A: 1.3 PA V2 max : 131.1 cm/sec : 92.4 cm/sec Med Peak E' Stephan : 95.9 cm/sec Ao max PG MV A max stephan PA mean PG : 6.9 mmHg : 71.2 cm/sec E/E' med: 11.1 Ao mean PG MV P1/2t: 52.9 msec Lat Peak E' Stephan PA Accel Time : 0.14 sec LVOT Max Stephan E/E' lat: 9.5 : 110.5 cm/sec E/e' average DARREL(I,D): 3.7 cm MV A dur: 0.11 sec sev ratio MV dec time MV P1/2t max stephan Ao V2 mean LV V1 max PG : 0.18 sec : 86.4 cm/sec MVA(P1/2t): 4.2 cm2 Ao V2 VTI: 28.8 cm LV V1 VTI DARREL(V,D): 3.2 cm2 : 27.9 cm PA V2 mean DARREL indexed to BSA : 71.2 cm/sec (cm^2/m^2): 1.9 Reading Physician:PM
[2017-02-04] MEDS: Thiamine Inj 500 MG in Dextrose 5% 50 ML IV SCH ×2 (14:23→19:58)
--- NOTE | 2017-02-04 16:58 | NUR ---
P: Agitation I: Pt restless with activity. Fentanyl 125mcqs/hr. Ativan gtt 3mg/hr. Propofol gtt dc'd. OGT LIS and draining green fluid. Lactulose per OGT given with no Bm's yet. Kphos rider infusing without difficulty. SR with IVCD. Cote patent and draining minimal lilia urine. Turned Q 2 hours. NPO. Afebrile. Pt has numerous skin scraps from the bushes. Peripheral lines x3 patent. Complete bath, shampoo, chlora bath and linen changed. Oral care Q 4 hours. E: Stable S: Restraints on for pt safety. Pt thrashes and pulls and is very strong. Does not follow commands at this time. Frequent rounding.
[2017-02-05] VITALS (12 sets, daily range): BP systolic 90–127; BP diastolic 48–67; PULSE 62–72; RESP 16–19; O2SAT 99–100
[2017-02-05] MEDS: Chlorhexidine 0.12% 15 mL Oral Solution MT SCH ×6 (00:15→20:30)
[2017-02-05] MEDS: fentaNYL 2,500 mCg/250 mL 2,500 MCG in IV Premix 1 EACH IV PRN (01:18)
[2017-02-05 02:10] LABS: Hepatitis A Antibody IgM Negative (Negative); Hepatitis B Core Antibody IgM Negative (Negative)
--- NOTE | 2017-02-05 02:47 | NUR ---
sedation fentanyl gtt at 125mcg/hr, ativan gtt at 3mg/hr, pt calm if left alone, pt stiff and uncooperative with turning, pt will pull at restraints and occ tries to sit up slightly with stimulation, 30mcg fentanyl bolus and 2mg ativan boluses given prn restlessness/ mild tremor, effective, pt calm again fio2 .30 per vent, sx sml amount of creamy sputum per ett, ls- sl course/decreased bases, resp rate=, oral care done, ogt placement wnl, lis, abd snt, no bm skin:abrasions t/o arms and legs bilaterally, bath:complete bed bath given with linen change, bath done per report on day shift but pt still with mod amount of odor, scd's on, turn q2hrs, tele- sr, ivcd, hr 60's, bp stable, afebrile plan:alona/quynh rider done, am labs pending, cxr and abg's this am, see ccu flow sheet, Addendum: 02/05/17 at 0633 by MARIA TERESA MORRISON RN aware of am lab results, ns increased to 200ml/hr, k/quynh hooks per protocol started, md aware of pharmacy suggestion to repeat bc draw while evaluating antibiotic coverage, md states will pass on to day shift rn,
[2017-02-05 03:19] LABS: BASOPHILS % (AUTO) 0.2 % (0-3); EOSINOPHILS % (AUTO) 1.1 % (0-5); MONOCYTES % (AUTO) 15.5 % (4-12); Mean Corpuscular Hemoglobin 28.6 pg (27.0-35.0); Mean Corpuscular Volume 87.6 fL (81-100); NEUTROPHILS % (AUTO) 59.6 % (40-74); Platelet Count 77 bil/L (150-400)
[2017-02-05] MEDS: LORazepam 100 mg/100 mL NS 100 MG in IV Premix 1 EACH IV SCH (03:59)
[2017-02-05 04:08] LABS: Phosphorus 2.2 mg/dL (2.5-4.9)
[2017-02-05] MEDS ORDERED: Vancomycin Serum Trough XX ONE (04:30)
[2017-02-05] MEDS: 0.9% Sodium Chloride 1,000 ML IV SCH ×3 (04:59→23:23)
[2017-02-05] MEDS ORDERED: Potassium Phos (mMol) Inj 15 MMOL in Dextrose 5% 250 ML IV ONE (05:05)
--- NOTE | 2017-02-05 05:10 | ABG ---
DateTimeAnalyzed 05:05:00 -_ pH ____7.449 - 7.350 7.450 pCO2 ___27.1__ -mmHg 35.0 45.0 pO2 121 -mmHg 69.0 116 HCO3- ___18.5__ -mmol/L 22.0 26.0 ABE ___-4.0__ -mmol/L -2.0 2.0 tHb ___10.8__ -g/dL O2Hb ___96.8__ -% COHb ____1.1__ -% MetHb ____1.1__ -% sO2 ___99.0__ -% 25.0 FIO2 ___35.0__ -% PRVC 18 - PEEP ____5.0__ -cmH2O Set_RR ___18.0__ -b/min Vt __500.0__ -L Drawn By MM - Date/Time Notified____ 05:09:00 -_ Spontaneous_RR ___18.0__ -b/min Oxygen Device 1 VENTILATOR - Notified By MM - Notified Whom DR ORO - B 758 -mmHg tO2 ___14.9__ -Vol% Juliano test N/A -
[2017-02-05] MEDS: Pantoprazole 4 mg/mL 10 mL Inj IVPUSH SCH (08:10)
[2017-02-05] MEDS: Thiamine Inj 500 MG in Dextrose 5% 50 ML IV SCH ×3 (08:10→20:30)
[2017-02-05] MEDS: Lactulose 20 Gm/30 mL 30 mL Syrup TUBE SCH ×2 (08:10→20:30)
[2017-02-05] MEDS: cefTRIAXone Inj 2,000 MG in Dextrose 5% Minibag Plus 50 ML IV SCH (08:11)
--- NOTE | 2017-02-05 08:21 | DRSVH ---
PROCEDURE: X-RAY CHEST ONE VIEW, PORTABLE ([id number]) INDICATIONS: ETT/eval PNA TECHNIQUE: One view of the chest was acquired. COMPARISON: [facility], CR, XR CHEST 1VW (PORTABLE), 02/03/2017, 14:28. FINDINGS: Surgical changes and devices: ETT tip projected 3.7 cm above the carlos. Lungs and pleura: No pleural effusions or pneumothorax. Left basilar airspace opacity, otherwise louie ngs are clear.. Mediastinum: Mediastinal contours appear normal. Heart size is normal. Bones and chest wall: No suspicious bony lesions. Overlying soft tissues appear unremarkable. IMPRESSION: Left basilar atelectasis versus aspiration or pneumonia. Correlate clinically. Dictated by: Humphrey Baez RRChristina Interpreted: Devora Rodrigez MD on 02/05/2017 at 8:19 Transcribed by: JOSE ALFREDO on 02/05/2017 at 8:21 Approved by: Devora Rodrigez M.D. on 02/05/2017 at 10:30
[2017-02-05] MEDS ORDERED: Succinylcholine Chloride 20 mg/mL 5 mL Inj ONE (10:28)
--- NOTE | 2017-02-05 10:32 | NUR ---
NUTRITION FOLLOW-UP Assess: 66 YO M admitted to CCU for AMS, rhabdomyolysis, and amphetamine abuse. Pt required mechanical ventilation. Pt has been NPO X 2 day. Received verbal to start TF today. Pt may be at risk for re-feeding due to history of alcohol abuse. PMHX: Unknown, ETOH abuse. DIET: NPO. 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 Fentanyl, lactulose, thiamine GI: No BM noted. SKIN: No issues noted. ANTHROPOMETRICS: Wt: 79.5 kg, BMI 26.6 kg/m2, Admit wt: 76.6 kg. ESTIMATED NEEDS: Vent Calories: 5242-6970 kcal/day (20-25 kcal/kg BW) Protein: 115-138 g/day (1.5-1.8 g/kg BW) Fluids: 5743-6599 ml/day (25-30 ml/kcal) NUTRITION DIAGNOSIS: 1) Inadequate oral intake related to decreased ability to consume sufficient energy as evidenced by NPO/Vent status. INTERVENTION: 1) If pt remains intubated, recommend enteral nutrition of Jevity 1.5 starting at 10 ml/hr. Recommend hold tfx24 hrs to monitor tolerance, once tolerance established, advance 10 ml q 6 hr to goal rate of 58 ml/hr. At goal TF will provide 1914 kcal, 81 g protein; meeting 100% calorie, 70% protein needs. 2) Consider adding 1 Prosource protein packet 3 X per day to provide 115 g protein; meeting 100% protein needs once TF is at goal rate 3) Monitor tolerance/labs for signs of re-feeding MONITOR/EVALUATE: NPO/Vent status, TF start/ac, POC, labs, GI/nutrition status. Follow per high nutrition risk guidelines.
[2017-02-05 10:57] LABS: Phosphorus 2.5 mg/dL (2.5-4.9)
[2017-02-05] MEDS: Heparin 5,000 Unit/mL Inj SUBQ SCH ×2 (11:24→16:37)
--- NOTE | 2017-02-05 11:56 | PCM.PNMED ---
Subjective Date of Service February 05, 2017 Subjective Mr. Baldemar Patton is a 66-year-old gentleman with history of alcohol abuse and current polysubstance use who was brought to the [facility] Emergency Department after being found violating shrubbery. Patient was aggressive and combative; subsequently sedated, paralyzed, and intubated for his and staff safety during further evaluation of acute encephalopathy. No acute events overnight. Per nursing, patient pulls at restraints and tries to sit up with stimulation and received 30mcg fentanyl and 2mg lorazepam boluses as needed for restlessness and mild tremors. Fentanyl gtt currently at 125mcg/hr and lorazepam 3mg/hr. Exam Vital Signs Vital Sign - Last Date Time Temp Pulse Resp B/P Pulse Ox O2 Delivery O2 Flow Rate FiO2 02/05/17 04:24 64 109/66 99 35 02/05/17 04:00 36.7 18 Mechanical Ventilator Intake and Output 02/04/17 02/04/17 02/05/17 Cumulative From/Thru 15:00 23:00 07:00 02/03/17 14:04 - 02/05/17 06:15 Intake Total 2129 ml 2418 ml 9222 ml Output Total 625 ml 950 ml 2400 ml Balance 1504 ml 1468 ml 6822 ml Intake IV Total 2129 ml 2418 ml 9222 ml Output Urine Total 500 ml 700 ml 2000 ml Gastric Drainage Total 125 ml 250 ml 400 ml # Bowel Movements 0 0 0 Exam General: Intubated and sedated. HEENT: Normocephalic, atraumatic. Anicteric sclerae. Oral mucosa dry/pink Neck: No jugular venous distension, lymphadenopathy or thyromegaly. Cardiovascular: Regular rate and rhythm with no murmurs, rubs, or gallops appreciated Pulmonary: Clear to auscultation bilaterally with no crackles, wheezes, or rhonchi. Abdomen: Soft, nondistended, no hepatosplenomegaly appreciated, bowel tones present Extremities: No edema or cyanosis, multiple scratches, cuts lower ext bilaterally. No erythema or warmth. Skin: Normal temperature, turgor; no rashes or ulcerations. Neurological: Sedated, unable to assess. Psychiatric: Sedated, unable to assess. IVs and Medications Medications Reviewed: Medications were reviewed in detail Lab and Diagnostics Laboratory Tests Test 02/04/17 08:45 02/05/17 02:50 White Blood Count 5.5th/mm3 (3.8-10.1) 4.4th/mm3 (3.8-10.1) Red Blood Count 3.57mil/mm3 (4.40-5.80) 3.88mil/mm3 (4.40-5.80) Hemoglobin 10.1g/dL (13.8-17.2) 11.1g/dL (13.8-17.2) Hematocrit 31.6% (41.0-50.0) 34.0% (41.0-50.0) Mean Corpuscular Volume 88.5fL (81-100) 87.6fL (81-100) Mean Corpuscular Hemoglobin 28.3pg (27.0-35.0) 28.6pg (27.0-35.0) Mean Corpuscular Hemoglobin Concent 32.0% (32.0-37.0) 32.6% (32.0-37.0) Red Cell Distribution Width 15.9% (12.3-15.4) 16.1% (12.3-15.4) Platelet Count 73bil/L (150-400) 77bil/L (150-400) Neutrophils (%) (Auto) 69.0% (40-74) 59.6% (40-74) Lymphocytes (%) (Auto) 19.7% (14-46) 23.6% (14-46) Monocytes (%) (Auto) 10.7% (4-12) 15.5% (4-12) Eosinophils (%) (Auto) 0.4% (0-5) 1.1% (0-5) Basophils (%) (Auto) 0.2% (0-3) 0.2% (0-3) Sodium Level 139mEq/L (134-144) 137mEq/L (134-144) Potassium Level 3.5mEq/L (3.5-5.2) 3.6mEq/L (3.5-5.2) Chloride Level 107mEq/L (97-108) 107mEq/L (97-108) Carbon Dioxide Level 16mmol/L (18-29) 17mmol/L (18-29) Blood Urea Nitrogen 19mg/dL (8-27) 11mg/dL (8-27) Creatinine 0.61mg/dL (0.76-1.27) 0.54mg/dL (0.76-1.27) Estimat Glomerular Filtration Rate 141mL/min (>59) 163mL/min (>59) Glucose Level 81mg/dL (60-99) 98mg/dL (60-99) Calcium Level 7.9mg/dL (8.5-10.1) 7.5mg/dL (8.5-10.1) Phosphorus Level 2.4mg/dL (2.5-4.9) 2.2mg/dL (2.5-4.9) Magnesium Level 2.1mg/dL (1.6-2.6) 2.0mg/dL (1.6-2.6) Total Bilirubin 1.1mg/dL (0.0-1.2) 1.6mg/dL (0.0-1.2) Aspartate Amino Transf (AST/SGOT) 178U/L (0-50) 190U/L (0-50) Alanine Aminotransferase (ALT/SGPT) 66U/L (0-44) 65U/L (0-44) Alkaline Phosphatase 75U/L (25-160) 73U/L (25-160) Total Creatine Kinase 1297U/L (21-232) 1137U/L (21-232) Total Protein 5.2g/dL (6.4-8.4) 5.4g/dL (6.4-8.4) Albumin 2.6g/dL (3.4-5.0) 2.5g/dL (3.4-5.0) Prealbumin 7mg/dL (20-40) Triglycerides Level 153mg/dL (0-149) Procalcitonin 0.38ng/mL (0.00-0.08) 0.26ng/mL (0.00-0.08) HIV (1&2) Ag and Ab, 4th Generation Non reactive (Non Reactive) Lactic Acid Level 1.0mmol/L (0.4-2.0) Ammonia 63ug/dL (18-53) Result Diagram: 02/05/17 0250 02/05/17 0250 Microbiology 02/03/17 Blood Culture- 1 out of 4 grew gram positive cocci, coag negative 02/03/17 Gram Stain - CSF: No polys/organisms see; CSF clear, WBC 1, RBC 1, glucose 73, total protein 26 02/03/17 Streptococcus pneumoniae Ag Screen - negative 02/04/17 MRSA screen-negative. X-Rays, CTs and MRIs (02/03/17) CT BRAIN WITHOUT CONTRAST IMPRESSION: No acute intracranial disease process. Dictated and approved by: Lesley Cee MD, PhD on 02/03/2017 at 14:56 (02/03/17) X-RAY CHEST ONE VIEW, PORTABLE IMPRESSION: ET tube approximately 1.8 cm superior to the carlos and could be pulled back approximately 2 cm. Dictated and approved by: Lesley Cee MD, PhD on 02/03/2017 at 14:39 (02/04/17) US ABDOMEN IMPRESSION: 1. Study is limited. There is cholelithiasis with no sonographic evidence of acute cholecystitis. 2. Fatty infiltration of an otherwise sonographically normal liver. Dictated and approved by: Claudio Arambula M.D. on 02/04/2017 at 8:59 . 12-lead ECG Sinus tachycardia, rate 130. RBBB. Inferior Q waves. Additional Diagnostics Metabolic acidosis on ABG: pH 7.313, pCO2 34, pO2 165, HCO3 16.9 Lumbar puncture- 15:25 on 02/03/17. ED Physician (Dr. Carbajal) -Clear CSF noted -Gram stain- No polys/organisms see; CSF clear, WBC 1, RBC 1, glucose 73, total protein 26 Urine toxicology in the ED: positive for marijuana, methamphetamine, and amphetamines. . Assessment & Plan Mr. Baldemar Patton is a 66-year-old gentleman with history of alcohol abuse and current polysubstance use who was brought to the [facility] Emergency Department after being found in a local park eating shrubbery. Patient was aggressive and combative; subsequently sedated, paralyzed, and intubated for his and staff safety during further evaluation of acute encephalopathy. Acute encephalopathy, present on admission. Active. -Likely secondary to polysubstance use and potentially hepatic encephalopathy or occult infection. -Ammonia elevated and hepatosteatosis noted on abdominal US consistent with hepatic encephalopathy. -Hepatitis C positive, HIV nonreactive. QuantiFERON gold - still pending -Lactate normalized, procalcitonin trending down. Will stop antibiotics, no signs of active infection (1 out of 4 blood cultures positive for coag negative GPC, likely contaminate) -Continue thiamine for possible Wernicke's, 500mg IV TID x3 days, then 250mg IV x3-5days and lactulose 20gm BID -Sedation and extubation per Pulm/CCU team recommendations. Appreciate input and expertise. Polysubstance use, present on admission. Active. -Urine drug screen in the ED positive for amphetamine, methamphetamine, and marijuana -Continue supportive care during acute intoxication/withdrawal. -Chemical dependency screening and counseling as able/desired Rhabdomyolysis, present on admission. Active. -Met criteria with creatine kinase elevated 5 times normal, received 2L NS. -Creatinine kinase trending down -Repeat creatinine kinase in morning -Continue IVFs- NS at 100mls/hr Elevated liver enzymes, present on admission. Active. -Likely secondary to substance abuse and hepatitis C. -Abd US, as above. -PT/INR 13.4/1.25 -Follow CMP -Will need outpatient followup for positive HepC antibody. Thrombocytopenia, present on admission. Active. -Likely secondary to ongoing alcohol dependence -Follow CBC -Management as above. Anemia, present on admission. Active. -Likely multifactorial, due to possible alcohol dependence, poor nutritional status. -Continue to monitor with further evaluation and treatment as needed History of alcohol abuse, present on admission. Active -Previous Emergency Department in 2005 was for acute alcohol intoxication and injury related to same -Elevated liver enzymes consistent with continuous alcohol dependence -Change propofol to lorazepam, as above. Multiple skin lesions, present on admission. Active. -Wound Care as needed Lactic acidosis on the present on admission. Resolved. -Likely secondary to acute intoxication, medication administration -IV fluids as above. Leukocytosis, mild, present on admission. Resolved. -Likely due to margination related to activity surrounding acute intoxication and possibly infection. High risk medications: IV fentanyl, IV lorazepam -GI prophylaxis with H2 denise -Start Tube feeds. -No acetaminophen ordered, given elevated liver function tests Disposition: Patient will likely need 2-3 more days of inpatient monitoring pending resolution of acute intoxication, encephalopathy and extubation. GI Prophylaxis: H2 denise VTE Prophylaxis: Sub-Q Heparin (Unfractionated) VTE Mechanical Devices: Intermittant Pneumatic CD Resuscitation Status: CPR: Attempt Resuscitation Attending Statement The patient was seen and examined together with Dr. Herrera on 02-05-17 and I agree with the history, exam and plan as outlined in the note above. Patito Herrera DO February 05, 2017 08:00 Kari Saunders MD February 05, 2017 17:47
--- NOTE | 2017-02-05 13:06 | PROG NOTE ---
[address] [address] PROGRESS NOTE PATIENT: CHELSY BASURTO : 1950 MR#: [id number] ADMIT: 02/03/2017 JOB ID: [id number] DATE: 02/05/2017 PULMONARY CRITICAL CARE FOLLOWUP NOTE: PROBLEM: 1. Polysubstance overdose. 2. Mechanical ventilation. SUBJECTIVE: None. OBJECTIVE: Temperature 36.9. Pulse mid 60s. Respiratory rate 18 with ventilator set at 18, blood pressure 124/50. O2 sat on FiO2 of 35%, PEEP of 5 is 100%. General appearance: No acute distress. Sedated. Nursing indicates the patient gets extremely agitated with any interventions. Chest is relatively clear. Maybe a few crackles at the right base laterally. With tidal volume of 500, PEEP of 5, respiratory rate is 16, and FiO2 0.35. Peak inspiratory pressure 17, plateau is 15. PEEP is set at 5 and measured at 5. Heart: Regular rhythm. Heart tones seem normal. Abdomen soft. Quiet. Extremities: No pretibial edema. LABORATORY DATA: Shows a white count of 4400 with 59 polymorphonuclears, 23 lymphs, 15 monocytes. Hemoglobin relatively stable at 11.1. Platelet count stable at 77. Thirty-six hours ago, it was 122; 24 hours ago, it was 73, now 77. Seemingly has reached its abi. Sodium 137, potassium 3.6, with repletion currently 5.2. Chloride 107, CO2 17, BUN 11, creatinine 0.5. Calcium 7.5. Phosphorus mildly low at 2.2; after repletion, 2.5. Lactic acid 1. Magnesium 2. Total bilirubin 1.6. AST 190, relatively stable. ALT 65 and stable. Alk phos normal at 73. Ammonia 63. CK 1137 and relatively unchanged. Arterial blood gases on an FiO2 of 0.35, PEEP of 5, respiratory rate of 18, and tidal volume of 500, shows a pO2 of 121, a pCO2 27, pH 7.44, and bicarbonate 18. Respiratory rate was subsequently decreased to 16. ASSESSMENT: 1. Mechanical ventilation. Some very mild degree of over-ventilation. We can back off his respiratory rate. Has been currently backed off to 16. Will see how we do. Will employ end-tidal CO2 monitoring in order to avoid repeated arterial sticks. 2. Rhabdomyolysis. CK remaining somewhat elevated. Not really coming down as one would expect. I and O was not unreasonable, 4.5 L in, 1.1 L out. May need to recheck a CK, maybe even checking isoenzymes and troponins. 3. Agitation. Would wonder about the acuteness or chronicity of his altered mental status. Certainly is a handful for nursing at the moment. Ativan seems to be working rather well. Propofol currently off. How much of this is illegal drugs and how much of this is alcohol is unclear. Currently being treated for both with the Ativan and thiamine along with fluids, and at this point, nutritional support. PLAN: 1. Vent changes as made above. 2. Employ end-tidal CO2 monitoring to help manage the ventilator without relying on numerous arterial sticks.
--- NOTE | 2017-02-05 14:35 | NUR ---
P: Hypotension I: NS rate decreased from 200cc/hr to 100cc/hr. BP and MAP trending down. notified and orders received. NS 500cc bolus given with minimal change in BP. PICC ordered so Norepinephrine can be started to keep MAP>65. OGT patent and tube feeding Jevity 1.5 started at 10cc/hr for 24 hours. Water flush 40cc Q4 hours, so far tolerating tube feeding well. Turned Q 2hours. ETT with thick creamy sputum. Ativan gtt 3mg/hr with bolus with turning and activity. Fentanyl gtt 125mcqs/kg/min. Cote patent and draining minimal dark lilia urine. No BM's even with lactulose given. 3 peripheral lines patent . No family has called and none is listed on pt's previous visit. NSR with IVCD. Afebrile. Pt still has tremors with care and does open his eyes and get agitated. Pt does not follow any commands. E: Guarded S: Restraints on for pt safety. Frequent rounding.
[2017-02-05] MEDS ORDERED: 0.9% Sodium Chloride 500 ML IV ONE (15:00)
[2017-02-05] MEDS ORDERED: Propofol 10 mg/mL 20 mL Inj IVPUSH ONE (15:05)
--- NOTE | 2017-02-05 15:12 | PCM.PNMED ---
Subjective Date of Service February 05, 2017 Subjective Interval history: Patient is homeless, and does not have any family or legal decision makers present or accountable. Patient himself is sedated and intubated and unable to participate in his care. Exam Vital Signs BP 95/56 (MAP 61), HR 62 Lab and Diagnostics Result Diagram: 02/05/17 0250 02/05/17 1025 Assessment & Plan Progressive hypotension refractory to repeated IVF bolus. Requires IV pressor support which requires central IV access. As noted above, no family/decision maker available, so will proceed based on medical necessity with 2-physician written consent. Attending Statement The patient was seen and examined together with Dr. Bradford on 02-05-17 and I agree with the history,and plan as outlined in the note above. We did sign for consent for PIC line. Darrick Bradford DO February 05, 2017 15:12 Kari Saunders MD February 05, 2017 17:49
[2017-02-05] MEDS ORDERED: Sodium Chloride LOK Flush 10 mL Syringe IVFLUSH PRN ×2 (16:05)
--- NOTE | 2017-02-05 16:26 | NUR ---
Social Work Note: Screen Note Data& Assessment: EMR reviewed. Baldemar Bentley is a 66 year old male admitted on 02/03/2017 for AMS and amphetamine abuse. Pt currently on the vent. Pt is homeless. Pt has [facility] insurance coverage and no PCP or NOK identified. SW to follow up with pt post extubation pending MD orders. SW to continue to follow. Plan: Pt is on the vent. SW to follow up with pt post extubation pending MD orders. SW to continue to follow. ROSEMARY Khanna
[2017-02-05] MEDS: Norepinephrine 8,000 mCg/250 mL D5W Premix IV SCH (16:37)
[2017-02-05] MEDS: Propofol Inj 1,000,000 MCG in IV Premix 1 EACH IV SCH (16:37)
--- NOTE | 2017-02-05 16:50 | DRSVH ---
PROCEDURE: X-RAY PICC LINE PLACEMENT BY NURSE ([id number]) INDICATIONS: IV ACCESS COMPARISON: None. FINDINGS: PICC was placed by the intravenous therapy team from the right side. Fluoroscopic spot fi lm demonstrates tip projected over the lower SVC. IMPRESSION: Tip of PICC projected over the lower SVC . Dictated by: Humphrey ALVAREZ Interpreted: Nicol Milton MD on 02/05/2017 at 16:49 Transcribed by: GENE on 02/05/2017 at 16:50 Approved by: Nicol Milton M.D. on 02/05/2017 at 17:16
[2017-02-06] VITALS (13 sets, daily range): BP systolic 98–122; BP diastolic 54–77; PULSE 60–92; RESP 14–23; O2SAT 96–100
[2017-02-06] MEDS: Heparin 5,000 Unit/mL Inj SUBQ SCH ×3 (00:31→16:33)
[2017-02-06] MEDS: Chlorhexidine 0.12% 15 mL Oral Solution MT SCH ×6 (00:31→20:55)
--- NOTE | 2017-02-06 05:25 | ABG ---
DateTimeAnalyzed 05:19:00 -_ pH ____7.421 - 7.350 7.450 pCO2 ___31.6__ -mmHg 35.0 45.0 pO2 ___76.7__ -mmHg 69.0 116 HCO3- ___20.2__ -mmol/L 22.0 26.0 ABE ___-3.1__ -mmol/L -2.0 2.0 tHb ___10.7__ -g/dL O2Hb ___94.4__ -% COHb ____1.1__ -% MetHb ____0.9__ -% sO2 ___96.3__ -% 25.0 FIO2 ___35.0__ -% PRVC 16 - PEEP ____5.0__ -cmH2O Set_RR ___16.0__ -b/min Vt __500.0__ -L Drawn By MM - Date/Time Notified____ 05:25:00 -_ Spontaneous_RR ___16.0__ -b/min Notified Whom Vannessa,P. RN - B 758 -mmHg tO2 ___14.3__ -Vol% Juliano test N/A -
[2017-02-06 05:44] LABS: BASOPHILS % (AUTO) 0.2 % (0-3); EOSINOPHILS % (AUTO) 3.7 % (0-5); MONOCYTES % (AUTO) 16.4 % (4-12); Mean Corpuscular Hemoglobin 28.3 pg (27.0-35.0); NEUTROPHILS % (AUTO) 54.3 % (40-74); Platelet Count 66 bil/L (150-400)
--- NOTE | 2017-02-06 05:48 | NUR ---
P) LOC/Fever Pt.'s pupils are pinpoint and eyes roll back in his head when he opens them spontaneously, does not track or follow any commands, agitated with any care, fights oral care. tongue has open area on L side that bleeds with oral care. Low grade fever tonight, T-max 37.8c orally. I) Passive cooling, sedation per protocol, turning q2h and floating heels. E) Currently resting quietly with eyes closed, pulls against restraints with any care.
[2017-02-06 06:06] LABS: Magnesium 1.8 mg/dL (1.6-2.6)
[2017-02-06] MEDS ORDERED: Potassium Phos (mEq) Inj 40 MEQ in Dextrose 5% 500 ML IV ONE (07:30)
[2017-02-06] MEDS ORDERED: Albumin 25% 50 GM in IV Premix 1 EACH IV ONE (07:30)
[2017-02-06] MEDS ORDERED: Magnesium Sulf 4 Gm/100 mL H2O 4 GM in IV Premix 1 EACH IV ONE (07:30)
[2017-02-06] MEDS: cefTRIAXone Inj 2,000 MG in Dextrose 5% Minibag Plus 50 ML IV SCH (08:15)
[2017-02-06] MEDS: Pantoprazole 4 mg/mL 10 mL Inj IVPUSH SCH (08:24)
[2017-02-06] MEDS: Lactulose 20 Gm/30 mL 30 mL Syrup TUBE SCH ×2 (08:30→20:55)
[2017-02-06] MEDS: 0.9% Sodium Chloride 1,000 ML IV SCH ×3 (09:07→18:41)
[2017-02-06] MEDS: Thiamine Inj 500 MG in Dextrose 5% 50 ML IV SCH ×3 (09:07→20:57)
[2017-02-06] MEDS: Dexmedetomidine Inj 400 MCG in 0.9% Sodium Chloride 100 ML IV SCH ×2 (09:30→22:56)
--- NOTE | 2017-02-06 09:31 | DRSVH ---
PROCEDURE: X-RAY CHEST ONE VIEW, PORTABLE ([id number]) INDICATIONS: intubated TECHNIQUE: One view of the chest was acquired. COMPARISON: [facility], CR, XR CHEST 1VW (PORTABLE), 02/05/2017, 4:07. FINDINGS: Surgical changes and devices: ETT tip projected 3.9 cm above the carlos. Right PICC tip projected ov er the lower SVC. Lungs and pleura: Small pleural effusions and bibasilar airspace opacities are present, left greater than right. No pneumothorax. Mediastinum: Mediastinal contours appear normal. Heart size is normal. Bones and chest wall: No suspicious bony lesions. Overlying soft tissues appear unremarkable. IMPRESSION: Increasing bibasilar atelectasis versus aspiration or pneumonia. Correlate clinically. Dictated by: Humphrey Baez RRA Interpreted: Devora Rodrigez MD on 02/06/2017 at 9:29 Transcribed by: JOSE ALFREDO on 02/06/2017 at 9:30 Approved by: Devora Rodrigez M.D. on 02/06/2017 at 16:01
[2017-02-06] MEDS: LORazepam 100 mg/100 mL NS 100 MG in IV Premix 1 EACH IV SCH (09:43)
--- NOTE | 2017-02-06 10:21 | NUR ---
NUTRITION FOLLOW-UP Assess: 66 YO M admitted to CCU for AMS, rhabdomyolysis, and amphetamine abuse. Pt required mechanical ventilation. TF started 02/05. So far tolerating at trophic rate of 10ml/hr, pts phosphorus did drop a bit today to 2.1. TF to start slowly advancing today. 0 BM has been recorded despite pt receiving lactulose. PMHX: Unknown, ETOH abuse. DIET: NPO. NUTRITION SUPPORT: Jevity 1.5 @ 10ml/hr LABS: Cl 110, Bun 6, Insurance Risk Analyst .43, Glu 122, Ca 7.3, phos 2.1, t. bili 1.5, AST 120, ALT 52, Alb 2.1 MEDICATIONS: Reviewed. Fentanyl, lactulose, thiamine GI: No BM noted. SKIN: No issues noted. ANTHROPOMETRICS: Wt: 83.7 kg, BMI 28.1 kg/m2, Admit wt: 76.6 kg. ESTIMATED NEEDS: Vent Calories: 0649-7147 kcal/day (20-25 kcal/kg BW) Protein: 115-138 g/day (1.5-1.8 g/kg BW) Fluids: 4491-7611 ml/day (25-30 ml/kcal) NUTRITION DIAGNOSIS: 1) Inadequate oral intake related to decreased ability to consume sufficient energy as evidenced by NPO/Vent status.--- IMPROVING w/TF INTERVENTION: 1) Recommend continue Jevity 1.5 at 10 ml/hr. Recommend hold tfx24 hrs to monitor tolerance, once tolerance established, advance 10 ml q 6 hr to goal rate of 58 ml/hr. At goal TF will provide 1914 kcal, 81 g protein; meeting 100% calorie, 70% protein needs. 2) Consider adding 1 Prosource protein packet 3 X per day to provide 115 g protein; meeting 100% protein needs once TF is at goal rate 3) Monitor for BM MONITOR/EVALUATE: NPO/Vent status, TF ac, POC, labs, GI/nutrition status. Follow per high nutrition risk guidelines.
--- NOTE | 2017-02-06 14:59 | PROG NOTE ---
[address] [address] PROGRESS NOTE PATIENT: HCELSY BASURTO : 1950 MR#: [id number] ADMIT: 02/03/2017 JOB ID: [id number] DATE: 02/06/2017 MECHANICAL VENTILATION FOLLOW UP NOTE: PROBLEMS: 1. Polysubstance overdose. 2. Mechanical ventilation. SUBJECTIVE: None. OBJECTIVE: Temperature 37.2, pulse 64-82, respiratory rate 14 with ventilator set at 12, blood pressure 122/65, O2 sat on FiO2 of 0.35, PEEP of 5, is 96%. I and O shows 5 L in, 1.4 L out. General appearance: No acute distress. Sedated on ventilator. Will arouse to verbal stimuli with seemingly appropriate responses. Chest was clear with fairly good breath sounds bilaterally. Heart: Regular rhythm. Heart tones normal. Abdomen: Soft. A few bowel tones. Extremities: No pretibial edema. SCD in place. LABORATORY DATA: Shows a white count of 4100 with 54 polymorponuclears, 25 lymphocytes, 16 monocytes, 3 eosinophils. Hemoglobin stable at 10.8. Platelet count slowly falling at 66,000. Sodium 142, potassium 3.6, chloride 110, CO2 is 20. BUN 6, creatinine 0.4, falling. Calcium 7.3 with albumin of 2.1. Phosphorus 2.1. Magnesium 1.8. Total bilirubin 1.5 and stable. AST 120 and decreasing. ALT 52 and slightly improved. CK 308 down from 1137. Serology positive for hepatitis C antibody. Negative for hepatitis A, IgM, and hepatitis B surface antigen and B core antibody. IMPRESSIONS: 1. Mechanical ventilation. Patient doing reasonably well on mechanical ventilation. 2. Dynamics: Pulmonary mechanics seem quite good. Will decrease sedation and see if he gets agitated, and if not, we can proceed hopefully with extubation today. Multiple electrolyte abnormalities. Replace the potassium, phosphorus, and magnesium. 3. Hypoalbuminemia. Given albumin 50 g. PLAN: 1. Taper fentanyl and Ativan. 2. Start dexmedetomidine at 0.2 mcg/kg/hour. 3. Monitor behavior for agitation and possibly extubation as he seems awake and somewhat lucid and appropriate.
--- NOTE | 2017-02-06 15:01 | PCM.PNMED ---
Subjective Date of Service February 06, 2017 Subjective Mr. Baldemar Patton is a 66-year-old gentleman with history of alcohol abuse and current polysubstance use who was brought to the [facility] Emergency Department after being found violating shrubbery. Patient was aggressive and combative; subsequently sedated, paralyzed, and intubated for his and staff safety during further evaluation of acute encephalopathy. Patient remains intubated and sedated. Hypotensive yesterday afternoon (02/05) despite NS 500ml bolus and started on norepinephrine, which has been titrated off overnight. Patient maintaining SBP 90-100 with MAP 60-70. Fentanyl 100mcg/kg /min and lorazepam 1.5mg/hr. TFs at 10mls/hr. Patient opening his eyes and able to follow basic commands this morning. Exam Vital Signs Vital Sign - Last Date Time Temp Pulse Resp B/P Pulse Ox O2 Delivery O2 Flow Rate FiO2 02/06/17 07:29 36.9 64 16 108/63 100 Mechanical Ventilator 45 Intake and Output 02/05/17 02/05/17 02/06/17 Cumulative From/Thru 15:00 23:00 07:00 02/03/17 14:04 - 02/06/17 06:46 Intake Total 2646 ml 1835 ml 13894 ml Output Total 500 ml 550 ml 3450 ml Balance 2146 ml 1285 ml 99984 ml Intake IV Total 2538 ml 1474 ml 98920 ml Tube Feeding 68 ml 121 ml 189 ml Tube Irrigant 40 ml 240 ml 280 ml Output Urine Total 500 ml 550 ml 3050 ml Gastric Drainage Total 400 ml # Bowel Movements 0 Exam General: Intubated and sedated. HEENT: Normocephalic, atraumatic. Anicteric sclerae. Oral mucosa dry/pink Neck: No jugular venous distension, lymphadenopathy or thyromegaly. Cardiovascular: Regular rate and rhythm with no murmurs, rubs, or gallops appreciated Pulmonary: Clear to auscultation bilaterally with no crackles, wheezes, or rhonchi. Abdomen: Soft, nondistended, no hepatosplenomegaly appreciated, bowel tones present Extremities: Mild non-pitting edema upper/lower extremities bilaterally. multiple scratches, cuts lower ext bilaterally. Skin: Normal temperature, turgor; no rashes or ulcerations. Neurological: Sedated, unable to assess. Psychiatric: Sedated, unable to assess. IVs and Medications Medications Reviewed: Medications were reviewed in detail Lab and Diagnostics Laboratory Tests Test 02/05/17 10:25 02/06/17 05:20 Potassium Level 5.2mEq/L (3.5-5.2) 3.6mEq/L (3.5-5.2) Phosphorus Level 2.5mg/dL (2.5-4.9) 2.1mg/dL (2.5-4.9) Triglycerides Level 127mg/dL (0-149) White Blood Count 4.1th/mm3 (3.8-10.1) Red Blood Count 3.82mil/mm3 (4.40-5.80) Hemoglobin 10.8g/dL (13.8-17.2) Hematocrit 33.6% (41.0-50.0) Mean Corpuscular Volume 88.0fL (81-100) Mean Corpuscular Hemoglobin 28.3pg (27.0-35.0) Mean Corpuscular Hemoglobin Concent 32.1% (32.0-37.0) Red Cell Distribution Width 16.5% (12.3-15.4) Platelet Count 66bil/L (150-400) Neutrophils (%) (Auto) 54.3% (40-74) Lymphocytes (%) (Auto) 25.2% (14-46) Monocytes (%) (Auto) 16.4% (4-12) Eosinophils (%) (Auto) 3.7% (0-5) Basophils (%) (Auto) 0.2% (0-3) Sodium Level 142mEq/L (134-144) Chloride Level 110mEq/L (97-108) Carbon Dioxide Level 20mmol/L (18-29) Blood Urea Nitrogen 6mg/dL (8-27) Creatinine 0.43mg/dL (0.76-1.27) Estimat Glomerular Filtration Rate 212mL/min (>59) Glucose Level 122mg/dL (60-99) Calcium Level 7.3mg/dL (8.5-10.1) Magnesium Level 1.8mg/dL (1.6-2.6) Total Bilirubin 1.5mg/dL (0.0-1.2) Aspartate Amino Transf (AST/SGOT) 120U/L (0-50) Alanine Aminotransferase (ALT/SGPT) 52U/L (0-44) Alkaline Phosphatase 72U/L (25-160) Total Creatine Kinase 308U/L (21-232) Total Protein 4.6g/dL (6.4-8.4) Albumin 2.1g/dL (3.4-5.0) Prealbumin 5mg/dL (20-40) Result Diagram: 02/06/17 0520 02/06/17 0520 Microbiology 02/03/17 Blood Culture- 1 out of 4 grew gram positive cocci, coag negative 02/03/17 Gram Stain - CSF: No polys/organisms see; CSF clear, WBC 1, RBC 1, glucose 73, total protein 26 02/03/17 Streptococcus pneumoniae Ag Screen - negative 02/03/17 Urine culture- no growth 02/03/17 HIV nonreactive 02/03/17 Hepatitis C antibody- positive 02/03/17 Hepatitis A-negative 02/03/17 Hepatitis B-negative 02/04/17 MRSA screen-negative. X-Rays, CTs and MRIs (02/03/17) X-RAY CHEST ONE VIEW, PORTABLE IMPRESSION: ET tube approximately 1.8 cm superior to the carlos and could be pulled back approximately 2 cm. Dictated and approved by: Lesley Cee MD, PhD on 02/03/2017 at 14:39 (02/03/17) CT BRAIN WITHOUT CONTRAST IMPRESSION: No acute intracranial disease process. Dictated and approved by: Lesley Cee MD, PhD on 02/03/2017 at 14:56 (02/04/17) US ABDOMEN IMPRESSION: 1. Study is limited. There is cholelithiasis with no sonographic evidence of acute cholecystitis. 2. Fatty infiltration of an otherwise sonographically normal liver. Dictated and approved by: Claudio Arambula M.D. on 02/04/2017 at 8:59 (02/05/17) X-RAY CHEST ONE VIEW, PORTABLE IMPRESSION: Left basilar atelectasis versus aspiration or pneumonia. Correlate clinically. Interpreted and approved by: Devora Rodrigez MD on 02/05/2017 at 8:19 (02/06/17) X-RAY CHEST ONE VIEW, PORTABLE IMPRESSION: Increasing bibasilar atelectasis versus aspiration or pneumonia. Correlate clinically. Interpreted: Devora Rodrigez MD on 02/06/2017 at 9:29 Assessment & Plan Mr. Baldemar Patton is a 66-year-old gentleman with history of alcohol abuse and current polysubstance use who was brought to the [facility] Emergency Department after being [place] shrubbery. Patient was aggressive and combative; subsequently sedated, paralyzed, and intubated for his and staff safety during further evaluation of acute encephalopathy. Acute encephalopathy, present on admission. Active. -Likely secondary to polysubstance use and potentially hepatic encephalopathy or occult infection. -Ammonia elevated and hepatosteatosis noted on abdominal US consistent with hepatic encephalopathy. -Hepatitis C positive, HIV nonreactive. QuantiFERON gold - still pending -Lactate normalized, procalcitonin trending down. Stopped antibiotics (02/05), no signs of active infection (1 out of 4 blood cultures positive for coag negative GPC, likely contaminate) -Continue thiamine for possible Wernicke's, 500mg IV TID x3 days, then 250mg IV x3-5days and lactulose 20gm BID -Sedation and extubation per Pulm/CCU team recommendations. Appreciate input and expertise. Polysubstance use, present on admission. Active. -Urine drug screen in the ED positive for amphetamine, methamphetamine, and marijuana -Continue supportive care during acute intoxication/withdrawal. -Chemical dependency screening and counseling as able/desired Rhabdomyolysis, present on admission. Active. -Met criteria with creatine kinase elevated 5 times normal, received 2L NS. -Creatinine kinase trending down -Repeat creatinine kinase in morning -Continue IVFs- NS at 100mls/hr Elevated liver enzymes, present on admission. Active. -Likely secondary to substance abuse and hepatitis C. -Abd US, as above. -PT/INR 13.4/1.25 -Follow CMP -Will need outpatient followup for positive HepC antibody. Thrombocytopenia, present on admission. Active. -Likely secondary to ongoing alcohol dependence -Follow CBC -Management as above. Anemia, present on admission. Active. -Likely multifactorial, due to possible alcohol dependence, poor nutritional status. -Continue to monitor with further evaluation and treatment as needed History of alcohol abuse, present on admission. Active -Previous Emergency Department in 2005 was for acute alcohol intoxication and injury related to same -Elevated liver enzymes consistent with continuous alcohol dependence -Continue to titrate off lorazepam as tolerated. Multiple skin lesions, present on admission. Active. -Wound Care as needed Lactic acidosis on the present on admission. Resolved. -Likely secondary to acute intoxication, medication administration -IV fluids as above. Leukocytosis, mild, present on admission. Resolved. -Likely due to margination related to activity surrounding acute intoxication and possibly infection. High risk medications: IV fentanyl, IV lorazepam -GI prophylaxis with H2 denise -Start Tube feeds. -No acetaminophen ordered, given elevated liver function tests Disposition: Patient will likely need 2-3 more days of inpatient monitoring pending resolution of acute intoxication, encephalopathy and extubation. Progressive hypotension refractory to repeated IVF bolus. Requires IV pressor support which requires central IV access. As noted above, no family/decision maker available, so will proceed based on medical necessity with 2-physician written consent. VTE Prophylaxis: Sub-Q Heparin (Unfractionated) VTE Mechanical Devices: Intermittant Pneumatic CD Resuscitation Status: CPR: Attempt Resuscitation Attending Statement Patient seen and examined with house staff. Agree with all attached documentation. Patito Herrera DO February 06, 2017 07:58 Juliano Rodriguez MD February 07, 2017 07:43
[2017-02-06] MEDS: Norepinephrine 8,000 mCg/250 mL D5W Premix IV SCH (15:02)
[2017-02-06] MEDS ORDERED: fentaNYL-PF 50 mCg/mL 2 mL Inj IVPUSH PRN (15:30)
--- NOTE | 2017-02-06 16:09 | NUR ---
PS trial....Pt placed on PS trial at 0900 and remains stable on trial. Has had Ativan and Fentanyl weaned throughout shift and is currently off both and remaining calm and comfortable appearing. Has been responding slowly to commands. Tube feeds held for 1 1/2 hours for possible extubation, but decision was made to not extubate today. Tube feeds resumed. Pt had some pink tinged foul smelling rectal drainage noted. No stool present. Dr Leos updated and we will guaiac when pt stools.
[2017-02-07] VITALS (12 sets, daily range): BP systolic 107–148; BP diastolic 51–72; PULSE 60–74; RESP 16–38; O2SAT 92–100
[2017-02-07] MEDS: Chlorhexidine 0.12% 15 mL Oral Solution MT SCH ×6 (00:19→20:08)
[2017-02-07] MEDS: Heparin 5,000 Unit/mL Inj SUBQ SCH ×3 (00:20→15:34)
[2017-02-07] MEDS: Dexmedetomidine Inj 400 MCG in 0.9% Sodium Chloride 100 ML IV SCH (04:15)
--- NOTE | 2017-02-07 04:41 | ABG ---
DateTimeAnalyzed 04:36:00 -_ pH ____7.420 - 7.350 7.450 pCO2 ___32.5__ -mmHg 35.0 45.0 pO2 104 -mmHg 69.0 116 HCO3- ___20.7__ -mmol/L 22.0 26.0 ABE ___-2.6__ -mmol/L -2.0 2.0 tHb ___11.1__ -g/dL O2Hb ___96.0__ -% COHb ____1.2__ -% MetHb ____1.0__ -% sO2 ___98.2__ -% 25.0 FIO2 ___35.0__ -% PRVC 16 - PEEP ____5.0__ -cmH2O Set_RR ___16.0__ -b/min Vt __500.0__ -L Drawn By MM - Date/Time Notified____ 04:40:00 -_ Spontaneous_RR ___16.0__ -b/min Notified By MM - B 755 -mmHg tO2 ___15.1__ -Vol% Juliano test _Positive -
[2017-02-07] MEDS: 0.9% Sodium Chloride 1,000 ML IV SCH (05:36)
[2017-02-07 05:47] LABS: BASOPHILS % (AUTO) 0.5 % (0-3); EOSINOPHILS % (AUTO) 4.5 % (0-5); MONOCYTES % (AUTO) 24.3 % (4-12); Mean Corpuscular Hemoglobin 28.4 pg (27.0-35.0); Platelet Count 70 bil/L (150-400)
[2017-02-07 06:14] LABS: Phosphorus 1.9 mg/dL (2.5-4.9)
--- NOTE | 2017-02-07 06:25 | NUR ---
Respiratory/Agitation. Pt was on SBT with PS 5 above peep of 5, fio2 0.35, switched to prvc mode around 2029 with previous vent settings. Pt has been quite sedated, remain off fentanyl and ativan gtts. Around 2329, pt waking up and more agitated, started precedex gtt and pt also given IVP ativan 2mg x 2 and fentanyl 50 mcg IV x1 prn. Vital signs stable.
[2017-02-07] MEDS ORDERED: Potassium Phos (mEq) Inj 20 MEQ in Dextrose 5% 250 ML IV ONE (07:30)
--- NOTE | 2017-02-07 08:43 | PCM.PNMED ---
Subjective Date of Service February 07, 2017 Subjective PULMONARY/CRITICAL CARE PROGRESS NOTE Attending: Dr. Enrique/ Initial consulting physician: Dr. Herrera Overnight: No acute events; agitation noted, precedex initiated with ativan and fentanyl pushes (Ativan 2mg x2, fentanyl 50mcg x1) Today: Remains intubated and sedated, unable to obtain ROS. More somnolent compared to previous examinations, unable to arouse with voice or physical stimulation. Tolerating PST well at /. Exam Vital Signs Vital Sign - Last Date Time Temp Pulse Resp B/P Pulse Ox O2 Delivery O2 Flow Rate FiO2 02/07/17 07:21 57 28 138/72 100 35 02/07/17 04:33 37.2 Mechanical Ventilator Intake and Output 02/06/17 02/06/17 02/07/17 Cumulative From/Thru 15:00 23:00 07:00 02/03/17 14:04 - 02/07/17 06:00 Intake Total 1999 ml 1990 ml 64343 ml Output Total 550 ml 800 ml 4800 ml Balance 1449 ml 1190 ml 53658 ml Intake IV Total 1878 ml 1615 ml 27061 ml Tube Feeding 33 ml 255 ml 477 ml Tube Irrigant 88 ml 120 ml 488 ml Output Urine Total 550 ml 800 ml 4400 ml Gastric Drainage Total 400 ml # Bowel Movements 0 0 Exam General: Intubated and sedated; no acute distress HEENT: Atraumatic, ETT secured, pupils reman pinpoint, no scleral icterus Neck: Soft, no rash or deformities noted Cardiac: Regular rate approx 60 at time of examination; regular rhythm Respiratory: Bilateral coarse sounds appreciated at bases; no wheeze; adequate air flow all marti Abdomen: Soft, mildly distended, no pain with palpation noted at time of exam Extremities: Diffuse dependent edema noted BLUE and BLLE; multiple healing abrasions noted on limbs without evidence active bleeding Pulses: Radial equal and bilateral; dorsalis pedis equal and bilateral Skin: Warm and dry Neuro: Unable to obtain secondary to sedation Psych: Unable to obtain secondary to sedation Lab and Diagnostics Result Diagram: 02/07/1730 02/07/17 0530 Microbiology 02/03/17 Blood Culture- 1 out of 4 grew gram positive cocci, coag negative 02/03/17 Gram Stain - CSF: No polys/organisms see; CSF clear, WBC 1, RBC 1, glucose 73, total protein 26 5/21/17 Streptococcus pneumoniae Ag Screen - negative 02/03/17 Urine culture- no growth 02/03/17 HIV nonreactive 02/03/17 Hepatitis C antibody- positive 02/03/17 Hepatitis A-negative 02/03/17 Hepatitis B-negative 02/04/17 MRSA screen-negative. X-Rays, CTs and MRIs (02/03/17) X-RAY CHEST ONE VIEW, PORTABLE IMPRESSION: ET tube approximately 1.8 cm superior to the carlos and could be pulled back approximately 2 cm. Dictated and approved by: Lesley Cee MD, PhD on 02/03/2017 at 14:39 (02/03/17) CT BRAIN WITHOUT CONTRAST IMPRESSION: No acute intracranial disease process. Dictated and approved by: Lesley Cee MD, PhD on 02/03/2017 at 14:56 (02/04/17) US ABDOMEN IMPRESSION: 1. Study is limited. There is cholelithiasis with no sonographic evidence of acute cholecystitis. 2. Fatty infiltration of an otherwise sonographically normal liver. Dictated and approved by: Claudio Arambula M.D. on 02/04/2017 at 8:59 (02/05/17) X-RAY CHEST ONE VIEW, PORTABLE IMPRESSION: Left basilar atelectasis versus aspiration or pneumonia. Correlate clinically. Interpreted and approved by: Devora Rodrigez MD on 02/05/2017 at 8:19 (02/06/17) X-RAY CHEST ONE VIEW, PORTABLE IMPRESSION: Increasing bibasilar atelectasis versus aspiration or pneumonia. Correlate clinically. Interpreted: Devora Rodrigez MD on 02/06/2017 at 9:29 Assessment & Plan PULMONARY/CRITICAL CARE PROGRESS NOTE Attending: Dr. Enrique/ Initial consulting physician: Dr. Herrera Mr. Baldemar Bentley is a 66 year old gentleman with an unknown past medical history that presented to [facility] with agitation and altered mental status likely secondary to polysubstance abuse. He was intubated to secure his airway while increased sedatives were utilized to moderate his aggressive behavior. He was admitted for evaluation and treatment of acute hypoxic respiratory failure and AMS secondary to polysubstance use, and rhabdomyolysis. Pulmonary/critical care team consulted to assist with ventilator management and sedation weaning. Assessments - Acute hypoxic respiratory failure secondary to sedation to moderate aggression and obtain safety for patient and staff - Acute encephalopathy secondary to polysubstance use - History of polysubstance use; EtOH, methamphetamine, amphetamine, marijuana After observation on SBT, patient was deemed appropriate for liberation from vent which he has tolerated well Plan: - Minimize sedation: Precedex gtt + fentanyl and Ativan pushes prn - Attempt re-directing prior to ativan/fentanyl administration - Continue PST - Assess for extubation later today - Consider sitter for behaviour moderation - Continue thiamine, lactulose - Continue to monitor to s/sx of withdrawal, as we are uncertain substance use history On 02/06, patient was alert, following commands, but was not alert adequately for safe extubation. Overnight 02/06-02/07, additional sedatives needed to reduce agitation and aggression. Will continue to assess 02/07 for responsiveness and ability to maintain airway if patient is extubated. Caution use of sedatives post-extubation for behaviour control, consider sitter to minimize medication use and undesirable side effects and risk of re-intubation. DVT: Hep SQ q8 GI: PPI Diet: NPO PRN bowel/fever/pain High risk: IV ativan Code: FULL CODE Thank you for this consult, we will continue to follow along at this time, and continually re-assess for extubation. Total pulmonary/critical care time: 70 minutes Progressive hypotension refractory to repeated IVF bolus. Requires IV pressor support which requires central IV access. As noted above, no family/decision maker available, so will proceed based on medical necessity with 2-physician written consent. Pain Evaluation: Adequate Pain Control GI Prophylaxis: Proton Pump Inhibitor VTE Prophylaxis: Sub-Q Heparin (Unfractionated) VTE Mechanical Devices: Intermittant Pneumatic CD Resuscitation Status: CPR: Attempt Resuscitation Batsheva Leos DO February 07, 2017 08:00 Asher Enrique MD February 08, 2017 17:15
[2017-02-07] MEDS: Thiamine Inj 500 MG in Dextrose 5% 50 ML IV SCH ×2 (09:01→14:17)
[2017-02-07] MEDS: Pantoprazole 4 mg/mL 10 mL Inj IVPUSH SCH (09:01)
[2017-02-07] MEDS: Lactulose 20 Gm/30 mL 30 mL Syrup TUBE SCH ×2 (09:01→20:08)
[2017-02-07] MEDS: cefTRIAXone Inj 2,000 MG in Dextrose 5% Minibag Plus 50 ML IV SCH (09:04)
--- NOTE | 2017-02-07 09:25 | PCM.PNMED ---
Subjective Date of Service February 07, 2017 Subjective Mr. Baldemar Patton is a 66-year-old gentleman with history of alcohol abuse and current polysubstance use who was brought to the [facility] Emergency Department after being found eating shrubbery. Patient was aggressive and combative; subsequently sedated, paralyzed, and intubated for his and staff safety during further evaluation of acute encephalopathy. Patient remains intubated and sedated. Precedex initiated yesterday afternoon () with IV pushes of lorazepam and fentanyl. Patient is less responsive less morning, attempts to open his eyes but is not able to follow commands. Exam Vital Signs Vital Sign - Last Date Time Temp Pulse Resp B/P Pulse Ox O2 Delivery O2 Flow Rate FiO2 02/07/17 07:21 57 28 138/72 100 35 02/07/17 04:33 37.2 Mechanical Ventilator Intake and Output 02/06/17 02/06/17 02/07/17 Cumulative From/Thru 15:00 23:00 07:00 02/03/17 14:04 - 02/07/17 06:00 Intake Total 1999 ml 1990 ml 78231 ml Output Total 550 ml 800 ml 4800 ml Balance 1449 ml 1190 ml 62810 ml Intake IV Total 1878 ml 1615 ml 90739 ml Tube Feeding 33 ml 255 ml 477 ml Tube Irrigant 88 ml 120 ml 488 ml Output Urine Total 550 ml 800 ml 4400 ml Gastric Drainage Total 400 ml # Bowel Movements 0 0 Exam General: Intubated and sedated. HEENT: Normocephalic, atraumatic. Anicteric sclerae. Oral mucosa dry/pink Neck: No jugular venous distension, lymphadenopathy or thyromegaly. Cardiovascular: Regular rate and rhythm with no murmurs, rubs, or gallops appreciated Pulmonary: Clear to auscultation bilaterally with no crackles, wheezes, or rhonchi. Abdomen: Soft, mildly distended, appears nontender, no hepatosplenomegaly appreciated, bowel tones present Extremities: Mild non-pitting edema upper/lower extremities bilaterally. multiple scratches, cuts lower ext bilaterally. Skin: Normal temperature, turgor; no rashes or ulcerations. Neurological: Sedated, unable to assess. Psychiatric: Sedated, unable to assess. IVs and Medications Medications Reviewed: Medications were reviewed in detail Lab and Diagnostics Laboratory Tests Test 02/07/17 05:30 White Blood Count 3.8th/mm3 (3.8-10.1) Red Blood Count 4.01mil/mm3 (4.40-5.80) Hemoglobin 11.4g/dL (13.8-17.2) Hematocrit 34.5% (41.0-50.0) Mean Corpuscular Volume 86.0fL (81-100) Mean Corpuscular Hemoglobin 28.4pg (27.0-35.0) Mean Corpuscular Hemoglobin Concent 33.0% (32.0-37.0) Red Cell Distribution Width 16.2% (12.3-15.4) Platelet Count 70bil/L (150-400) Neutrophils (%) (Auto) 49.0% (40-74) Lymphocytes (%) (Auto) 21.4% (14-46) Monocytes (%) (Auto) 24.3% (4-12) Eosinophils (%) (Auto) 4.5% (0-5) Basophils (%) (Auto) 0.5% (0-3) Sodium Level 138mEq/L (134-144) Potassium Level 3.9mEq/L (3.5-5.2) Chloride Level 108mEq/L (97-108) Carbon Dioxide Level 18mmol/L (18-29) Blood Urea Nitrogen 4mg/dL (8-27) Creatinine 0.39mg/dL (0.76-1.27) Estimat Glomerular Filtration Rate 237mL/min (>59) Glucose Level 156mg/dL (60-99) Calcium Level 7.5mg/dL (8.5-10.1) Phosphorus Level 1.9mg/dL (2.5-4.9) Magnesium Level 2.0mg/dL (1.6-2.6) Total Bilirubin 2.0mg/dL (0.0-1.2) Aspartate Amino Transf (AST/SGOT) 104U/L (0-50) Alanine Aminotransferase (ALT/SGPT) 47U/L (0-44) Alkaline Phosphatase 86U/L (25-160) Total Protein 5.2g/dL (6.4-8.4) Albumin 2.7g/dL (3.4-5.0) Prealbumin 5mg/dL (20-40) Result Diagram: 02/07/17 0530 02/07/17 0530 Microbiology 02/03/17 Blood Culture- 1 out of 4 grew gram positive cocci, coag negative 02/03/17 Gram Stain - CSF: No polys/organisms see; CSF clear, WBC 1, RBC 1, glucose 73, total protein 26 02/03/17 Streptococcus pneumoniae Ag Screen - negative 02/03/17 Urine culture- no growth 02/03/17 HIV nonreactive 02/03/17 Hepatitis C antibody- positive 02/03/17 Hepatitis A-negative 02/03/17 Hepatitis B-negative 02/04/17 MRSA screen-negative. X-Rays, CTs and MRIs (02/03/17) X-RAY CHEST ONE VIEW, PORTABLE IMPRESSION: ET tube approximately 1.8 cm superior to the carlos and could be pulled back approximately 2 cm. Dictated and approved by: Lesley Cee MD, PhD on 02/03/2017 at 14:39 (02/03/17) CT BRAIN WITHOUT CONTRAST IMPRESSION: No acute intracranial disease process. Dictated and approved by: Lesley Cee MD, PhD on 02/03/2017 at 14:56 (02/04/17) US ABDOMEN IMPRESSION: 1. Study is limited. There is cholelithiasis with no sonographic evidence of acute cholecystitis. 2. Fatty infiltration of an otherwise sonographically normal liver. Dictated and approved by: Claudio Arambula M.D. on 02/04/2017 at 8:59 (02/05/17) X-RAY CHEST ONE VIEW, PORTABLE IMPRESSION: Left basilar atelectasis versus aspiration or pneumonia. Correlate clinically. Interpreted and approved by: Devora Rodrigez MD on 02/05/2017 at 8:19 (02/06/17) X-RAY CHEST ONE VIEW, PORTABLE IMPRESSION: Increasing bibasilar atelectasis versus aspiration or pneumonia. Correlate clinically. Interpreted: Devora Rodrigez MD on 02/06/2017 at 9:29 Assessment & Plan 66-year-old gentleman with history of alcohol abuse and current polysubstance use who was brought to the [facility] Emergency Department after being [place] a local [place] shrubbery. Patient was aggressive and combative; subsequently sedated, paralyzed, and intubated for his and staff safety during further evaluation of acute encephalopathy. Acute encephalopathy, present on admission. Active. -Likely secondary to polysubstance use and potentially hepatic encephalopathy or occult infection. -Ammonia elevated and hepatosteatosis noted on abdominal US consistent with hepatic encephalopathy. -Hepatitis C positive, HIV nonreactive. QuantiFERON gold - still pending -Lactate normalized, procalcitonin trended down. Antibiotics discontinued (02/05) , no signs of active infection (1 out of 4 blood cultures positive for coag negative GPC, likely contaminate) -Continue thiamine for possible Wernicke's, 500mg IV TID x3 days, then 250mg IV x3-5days and lactulose 20gm BID -Sedation and extubation per Pulm/CCU team recommendations. Appreciate input and expertise. Polysubstance use, present on admission. Active. -Urine drug screen in the ED positive for amphetamine, methamphetamine, and marijuana -Continue supportive care during acute intoxication/withdrawal. -Chemical dependency screening and counseling as able/desired Rhabdomyolysis, present on admission. Active. -Met criteria with creatine kinase elevated 5 times normal, received 2L NS. -Creatinine kinase trending down -Repeat creatinine kinase in morning -Continue IVFs- NS at 100mls/hr Elevated liver enzymes, present on admission. Active. -Likely secondary to substance abuse and hepatitis C. -Abd US, as above. -PT/INR 13.4/1.25 -Follow CMP -Will need outpatient followup for positive HepC antibody. Thrombocytopenia, present on admission. Active. -Likely secondary to ongoing alcohol dependence -Follow CBC -Management as above. Anemia, present on admission. Active. -Likely multifactorial, due to possible alcohol dependence, poor nutritional status. -Continue to monitor with further evaluation and treatment as needed History of alcohol abuse, present on admission. Active -Previous Emergency Department in 2005 was for acute alcohol intoxication and injury related to same -Elevated liver enzymes consistent with continuous alcohol dependence -Continue to titrate off lorazepam as tolerated. Multiple skin lesions, present on admission. Active. -Wound Care as needed High risk medications: IV fentanyl, IV lorazepam -GI prophylaxis with H2 denise -Start Tube feeds. -No acetaminophen ordered, given elevated liver function tests VTE Prophylaxis: Sub-Q Heparin (Unfractionated) VTE Mechanical Devices: Intermittant Pneumatic CD Resuscitation Status: CPR: Attempt Resuscitation Attending Statement Patient seen and examined with house staff. Agree with all attached documentation. Patito Herrera DO February 07, 2017 08:30 Juliano Rodriguez MD February 07, 2017 16:18 Resuscitation Status: CPR: Attempt Resuscitation Patito Herrera DO February 07, 2017 08:30
[2017-02-07] MEDS ORDERED: Sodium Biphos-Phos 133 mL Enema RECTAL ONE (09:50)
[2017-02-07] MEDS ORDERED: Furosemide 10 mg/mL 4 mL Inj IVPUSH ONE (11:00)
--- NOTE | 2017-02-07 11:00 | DRSVH ---
PROCEDURE: X-RAY CHEST ONE VIEW, PORTABLE ([id number]) INDICATIONS: ETT/tubes/pna? TECHNIQUE: One view of the chest was acquired. COMPARISON: [facility], CR, XR CHEST 1VW (PORTABLE), 02/06/2017, 5:16. FINDINGS: Surgical changes and devices: ETT tip projected 2.0 cm above the carlos. Nasogastric tube tip beverley ses the GE junction. Stable position of right PICC. Lungs and pleura: Diffuse, widespread bilateral pulmonary interstitial and air space opacities are p resent increased from prior examination. Small pleural effusions persist. Mediastinum: Mediastinal contours appear normal. Heart size is normal. Bones and chest wall: No suspicious bony lesions. Overlying soft tissues appear unremarkable. IMPRESSION: 1. Stable support lines and tubes. 2. Increasing edema and/or bilateral pneumonia. Dictated by: Humphrey ALVAREZ Interpreted: Lukasz Lovell MD on 02/07/2017 at 10:58 Transcribed by: ROMÁN on 02/07/2017 at 10:59 Approved by: Campos Lovell M.D. on 02/07/2017 at 11:17
--- NOTE | 2017-02-07 11:07 | PCM.PNMED ---
Subjective Date of Service February 07, 2017 Subjective 66 yo found altered and combative in a local park, eating vegetation. Intubated Tolerated long SBT 02/06 on 01/18 but required increase in sedation over . Minimal grimacing to sternal rub and attempts to open eyes to loud voice. No other critical events over noc Exam Vital Signs Vital Sign - Last Date Time Temp Pulse Resp B/P Pulse Ox O2 Delivery O2 Flow Rate FiO2 02/07/17 08:31 36.8 60 21 134/71 100 Mechanical Ventilator 35 Intake and Output 02/06/17 02/06/17 02/07/17 Cumulative From/Thru 15:00 23:00 07:00 02/03/17 14:04 - 02/07/17 06:00 Intake Total 1999 ml 1990 ml 07724 ml Output Total 550 ml 800 ml 4800 ml Balance 1449 ml 1190 ml 46201 ml Intake IV Total 1878 ml 1615 ml 89962 ml Tube Feeding 33 ml 255 ml 477 ml Tube Irrigant 88 ml 120 ml 488 ml Output Urine Total 550 ml 800 ml 4400 ml Gastric Drainage Total 400 ml # Bowel Movements 0 0 Exam Pale, chronically ill appearing man orally intubated on vent Lungs Decreased BS at Lt base, clear on Rt CV RRR, no m/g/r Abd Soft, No HSM, Normal BTs Ext 3+ UE edema, 2+ LE edema, warm, No cyanosis Skin Scattered excoriations and shallow small ulcers on extremities Neuro No spont movements, PER, Face symmetric Lab and Diagnostics Result Diagram: 02/07/17 0530 02/07/17 0530 Microbiology 02/03/17 Blood Culture- 1 out of 4 grew gram positive cocci, coag negative 02/03/17 Gram Stain - CSF: No polys/organisms see; CSF clear, WBC 1, RBC 1, glucose 73, total protein 26 02/03/17 Streptococcus pneumoniae Ag Screen - negative 02/03/17 Urine culture- no growth 02/03/17 HIV nonreactive 02/03/17 Hepatitis C antibody- positive 02/03/17 Hepatitis A-negative 02/03/17 Hepatitis B-negative 02/04/17 MRSA screen-negative. X-Rays, CTs and MRIs (02/03/17) X-RAY CHEST ONE VIEW, PORTABLE IMPRESSION: ET tube approximately 1.8 cm superior to the carlos and could be pulled back approximately 2 cm. Dictated and approved by: Lesley Cee MD, PhD on 02/03/2017 at 14:39 (02/03/17) CT BRAIN WITHOUT CONTRAST IMPRESSION: No acute intracranial disease process. Dictated and approved by: Lesley Cee MD, PhD on 02/03/2017 at 14:56 (02/04/17) US ABDOMEN IMPRESSION: 1. Study is limited. There is cholelithiasis with no sonographic evidence of acute cholecystitis. 2. Fatty infiltration of an otherwise sonographically normal liver. Dictated and approved by: Claudio Arambula M.D. on 02/04/2017 at 8:59 (02/05/17) X-RAY CHEST ONE VIEW, PORTABLE IMPRESSION: Left basilar atelectasis versus aspiration or pneumonia. Correlate clinically. Interpreted and approved by: Devora Rodrigez MD on 02/05/2017 at 8:19 (02/06/17) X-RAY CHEST ONE VIEW, PORTABLE IMPRESSION: Increasing bibasilar atelectasis versus aspiration or pneumonia. Correlate clinically. Interpreted: Devora Rodrigez MD on 02/06/2017 at 9:29 Assessment & Plan IMP Acute respiratory Failure It appears that he was intubated originally due to his agitated delirium. On exam now appears to have effusion and/or atelectasis at Lt base Encephalopathy Toxic due to multiple drug ingestion with positive UDS, CSF unremarkable Hep C Elevated transaminases and T. bili. Elevated ammonia on 02/05 and normal coags on admission. Probably should have HIV testing if not recently done. Polysubstance abuse Withdrawal syndromes and encephalopathy will be challenges PLAN SAT/SBT today, hope to extubate soon Hold feedings in anticipation Routine ICU prophylaxis Continue abx empirically for now,m consider DC soon Consider HIV testing GI Prophylaxis: Proton Pump Inhibitor VTE Prophylaxis: Sub-Q Heparin (Unfractionated) VTE Mechanical Devices: Intermittant Pneumatic CD Resuscitation Status: CPR: Attempt Resuscitation Asher Enrique MD February 07, 2017 11:07
[2017-02-07] MEDS: Norepinephrine 8,000 mCg/250 mL D5W Premix IV SCH (14:17)
--- NOTE | 2017-02-07 15:19 | NUR ---
PT WAS ON SBT THEN TIRED OUT, BACK TO VENT THEN dr macedo put him back on sbt for 1 hour andf extubated him to a 4 liter cannula. pt is pretty lethargic, tachypnic with rr at 34 but his o2 sats are adequate
--- NOTE | 2017-02-07 16:50 | DRSVH ---
PROCEDURE: X-RAY CHEST ONE VIEW, PORTABLE ([id number]) INDICATIONS: POST-EXTUBATION TECHNIQUE: One view of the chest was acquired. COMPARISON: [facility], CR, XR CHEST 1VW (PORTABLE), 02/07/2017, 5:09. FINDINGS: Surgical changes and devices: Stable position right PICC. Lungs and pleura: Lung volumes have increased and there is slight decrease in air space opacity withi n the mid right lung, otherwise mid left lung and bibasilar airspace opacities persist. Small pleura l effusions. No pneumothorax. Mediastinum: Mediastinal contours appear normal. Heart size is normal. Bones and chest wall: No suspicious bony lesions. Overlying soft tissues appear unremarkable. IMPRESSION: Interval decrease in air space opacity within the right upper lobe otherwise persistent b ilateral opacities with appearance suggesting atelectasis and/or pneumonia. Correlate clinically. Dictated by: Humphrey ALVAREZ Interpreted: Lukasz Lovell MD on 02/07/2017 at 16:48 Transcribed by: ROMÁN on 02/07/2017 at 16:49 Approved by: Campos Lovell M.D. on 02/07/2017 at 17:07
--- NOTE | 2017-02-07 18:12 | NUR ---
Ex-tubation/behavior No sedatives or narcotics were given during the shift. Patient remained on Precedex drip at 0.2mcg/kg/h. Drip was decreased to 0.1mcg/kg/h and stopped prior to ex-tubation. Patient was ex-tubated at 1505 today and placed initially on 4l NC O2 with oxygen saturation 100% and RR in mid to high 20s. O 2 was decreased to 2L NC with attending laborer orchard agreement and oxygen saturation remained 98-99% with similar rate of breathing. Patient was able to open his eyes to verbal commands or his name but reluctantly and was able to follow some simple command. Speech was mumbled and difficult to understand MD ordered a speech therapy evaluation. After consulting with Speech Therapist patient remained not appropriate to complete this test- will re-evaluate tomorrow. Patient was resisting some care espetally turning and repositioning. Patient appeared to be angry at staff. Patient was also reaching to remove hid IV lines and leads - bilateral wrist restrained remained in place for safety until patient becomes more coherent and better aware of his environment -continue assessment.
[2017-02-08] VITALS (8 sets, daily range): BP systolic 119–153; BP diastolic 63–80; PULSE 72–98; RESP 18–29; O2SAT 93–98
[2017-02-08 00:19] LABS: BASOPHILS % (AUTO) 0.3 % (0-3); EOSINOPHILS % (AUTO) 6.3 % (0-5); MONOCYTES % (AUTO) 18.7 % (4-12); Mean Corpuscular Hemoglobin 28.6 pg (27.0-35.0); Mean Corpuscular Volume 85.5 fL (81-100); NEUTROPHILS % (AUTO) 54.1 % (40-74); Platelet Count 69 bil/L (150-400)
[2017-02-08] MEDS: Chlorhexidine 0.12% 15 mL Oral Solution MT SCH ×2 (00:30→04:30)
--- NOTE | 2017-02-08 04:08 | NUR ---
P: keep sats > 92% I: 1L NC, soft oral suction E: RASS -1 to -2. Opens eyes minimally when care given. Nods no to pain but unable to follow other cues. Moving BUEs and BLEs weakly. Sats in the mid to upper 90s. NC titrate from 4L down to RA. Pt held sats well until suddenly dropping to 90% on RA. Pt has rare weak congested cough. Using soft oral suction bringing up moderate creamy red streak phlegm. Add 1L NC and pt holding sats in the mid 90s. RR generally mid 20s. Gentle oral care. Oral cavity w/ minimal bleeding at times. Tele SR, 1st AVB, IVCD. Stable BP. IVF tko. Rupa UOP. Medium mucous red stool. Report to Dr. Vernon who gave orders for MN CBC and to hold NOC SQ heparin.
[2017-02-08 05:57] LABS: BASOPHILS % (AUTO) 0.3 % (0-3); EOSINOPHILS % (AUTO) 6.4 % (0-5); MONOCYTES % (AUTO) 22.4 % (4-12); Mean Corpuscular Hemoglobin 28.9 pg (27.0-35.0); Mean Corpuscular Volume 84.8 fL (81-100); NEUTROPHILS % (AUTO) 45.9 % (40-74); Platelet Count 76 bil/L (150-400)
[2017-02-08 06:25] LABS: Magnesium 1.8 mg/dL (1.6-2.6); Phosphorus 1.7 mg/dL (2.5-4.9)
[2017-02-08] MEDS ORDERED: Magnesium Sulf 4 Gm/100 mL H2O 4 GM in IV Premix 1 EACH IV ONE (07:20)
[2017-02-08] MEDS ORDERED: Potassium Phos (mEq) Inj 40 MEQ in Dextrose 5% 500 ML IV ONE ×2 (07:20→11:55)
[2017-02-08] MEDS: Lactulose 20 Gm/30 mL 30 mL Syrup TUBE SCH ×2 (08:24→20:30)
[2017-02-08] MEDS ORDERED: Heparin 5,000 Unit/mL Inj SUBQ SCH (08:30)
[2017-02-08] MEDS: Dexmedetomidine Inj 400 MCG in 0.9% Sodium Chloride 100 ML IV SCH (09:20)
--- NOTE | 2017-02-08 09:21 | PCM.PNMED ---
Subjective Date of Service February 08, 2017 Subjective PULMONARY/CRITICAL CARE PROGRESS NOTE Attending: Dr. Enrique/ Initial consulting physician: Dr. Herrera Overnight: No acute events; mucous red stool noted, sent to lab for guaiac + repeat CBC.Hep SQ held. Today: Remains somnolent. Tolerating NC well. Unable to arouse, ROS could not be obtained. Exam Vital Signs Vital Sign - Last Date Time Temp Pulse Resp B/P Pulse Ox O2 Delivery O2 Flow Rate FiO2 02/08/17 04:30 37.0 85 29 130/63 93 Nasal Cannula 2.00 02/07/17 14:00 35 Intake and Output 02/07/17 02/07/17 02/08/17 Cumulative From/Thru 15:00 23:00 07:00 02/03/17 14:04 - 02/08/17 05:51 Intake Total 1363 ml 238 ml 31533 ml Output Total 2150 ml 675 ml 7625 ml Balance -787 ml -437 ml 13646 ml Intake IV Total 1305 ml 238 ml 61463 ml Tube Feeding 58 ml 535 ml Tube Irrigant 488 ml Output Urine Total 1950 ml 675 ml 7025 ml Gastric Drainage Total 200 ml 600 ml # Bowel Movements 1 2 3 Exam General: Somnolent; no acute distress HEENT: Atraumatic, NC in place; no conjunctival erythema Neck: Soft, no rash or deformities noted Cardiac: Regular rate approx 80 at time of examination; regular rhythm Respiratory: Bilateral coarse sounds appreciated at bases; no wheeze; adequate air flow all marti Abdomen: Soft, mildly distended, no pain with palpation noted at time of exam Extremities: Diffuse dependent edema noted BLUE and BLLE; multiple healing abrasions noted on limbs without evidence active bleeding Pulses: Radial equal and bilateral; dorsalis pedis equal and bilateral Skin: Warm and dry Neuro: Unable to obtain secondary to sedation/somnolence Psych: Unable to obtain secondary to sedation/somnolence Lab and Diagnostics Result Diagram: 02/08/1730 02/08/17 05 Microbiology 02/03/17 Blood Culture- 1 out of 4 grew gram positive cocci, coag negative 02/03/17 Gram Stain - CSF: No polys/organisms see; CSF clear, WBC 1, RBC 1, glucose 73, total protein 26 02/03/17 Streptococcus pneumoniae Ag Screen - negative 02/03/17 Urine culture- no growth 02/03/17 HIV nonreactive 02/03/17 Hepatitis C antibody- positive 02/03/17 Hepatitis A-negative 02/03/17 Hepatitis B-negative 02/04/17 MRSA screen-negative. X-Rays, CTs and MRIs (02/03/17) X-RAY CHEST ONE VIEW, PORTABLE IMPRESSION: ET tube approximately 1.8 cm superior to the carlos and could be pulled back approximately 2 cm. Dictated and approved by: Lesley Cee MD, PhD on 02/03/2017 at 14:39 (02/03/17) CT BRAIN WITHOUT CONTRAST IMPRESSION: No acute intracranial disease process. Dictated and approved by: Lesley Cee MD, PhD on 02/03/2017 at 14:56 (02/04/17) US ABDOMEN IMPRESSION: 1. Study is limited. There is cholelithiasis with no sonographic evidence of acute cholecystitis. 2. Fatty infiltration of an otherwise sonographically normal liver. Dictated and approved by: Claudio Arambula M.D. on 02/04/2017 at 8:59 (02/05/17) X-RAY CHEST ONE VIEW, PORTABLE IMPRESSION: Left basilar atelectasis versus aspiration or pneumonia. Correlate clinically. Interpreted and approved by: Devora Rodrigez MD on 02/05/2017 at 8:19 (02/06/17) X-RAY CHEST ONE VIEW, PORTABLE IMPRESSION: Increasing bibasilar atelectasis versus aspiration or pneumonia. Correlate clinically. Interpreted: Devora Rodrigez MD on 02/06/2017 at 9:29 Assessment & Plan PULMONARY/CRITICAL CARE PROGRESS NOTE Attending: Dr. Enrique/ Initial consulting physician: Dr. Herrera Mr. Baldemar Bentley is a 66 year old gentleman with an unknown past medical history that presented to [facility] with agitation and altered mental status likely secondary to polysubstance abuse. He was intubated to secure his airway while increased sedatives were utilized to moderate his aggressive behavior. He was admitted for evaluation and treatment of acute hypoxic respiratory failure and AMS secondary to polysubstance use, and rhabdomyolysis. Pulmonary/critical care team consulted to assist with ventilator management and sedation weaning. Assessments - Acute hypoxic respiratory failure secondary to sedation to moderate aggression and obtain safety for patient and staff - Acute encephalopathy secondary to polysubstance use - History of polysubstance use; EtOH, methamphetamine, amphetamine, marijuana Plan: - Continue to minimize pain/sedatives - Consider sitter for behaviour moderation - Continue thiamine, lactulose - Continue to monitor to s/sx of withdrawal, as we are uncertain substance use history Pt successfully extubated 02/07. Caution use of sedatives post-extubation for behaviour control, consider sitter to minimize medication use and undesirable side effects and risk of re-intubation. DVT: Hep SQ q8 GI: PPI Diet: NPO PRN bowel/fever/pain High risk: IV ativan Code: FULL CODE Thank you for this consult, we will continue to follow along at this time while we assess his respiratory status as he recovers from his intoxication. Total pulmonary/critical care time: 60 minutes Pain Evaluation: Adequate Pain Control GI Prophylaxis: Proton Pump Inhibitor VTE Prophylaxis: Sub-Q Heparin (Unfractionated) VTE Mechanical Devices: Intermittant Pneumatic CD Resuscitation Status: CPR: Attempt Resuscitation Batsheva Leos DO February 08, 2017 07:41
--- NOTE | 2017-02-08 09:27 | NUR ---
Evaluation completed. Please go to "Notes" then click on "Assessments and Notes" (bottom left corner of screen). Then select appropriate discipline tab on top of screen.
--- NOTE | 2017-02-08 09:27 | DRSVH ---
PROCEDURE: X-RAY CHEST ONE VIEW, PORTABLE ([id number]) INDICATIONS: AMS/risk PNA/post-extub TECHNIQUE: One view of the chest was acquired. COMPARISON: [facility], CR, XR CHEST 1VW (PORTABLE), 02/07/2017, 15:48. FINDINGS: Surgical changes and devices: Stable position of right PICC. Lungs and pleura: Lung volumes have minimally increased and there is no significant change in air spa ce opacity within the mid mid lungs and lung bases. Small pleural effusions. No pneumothorax. Mediastinum: Mediastinal contours appear normal. Heart size is normal. Bones and chest wall: No suspicious bony lesions. Overlying soft tissues appear unremarkable. IMPRESSION: 1. Slight increase in lung volumes otherwise persistent bilateral pulmonary opacities suggesting atel ectasis and/or pneumonia. 2. Small effusions persist. Dictated by: Humphrey Baez [facility] Interpreted: Claudio Arambula MD on 02/08/2017 at 9:24 Transcribed by: MELCHOR on 02/08/2017 at 9:27 Approved by: Claudio Arambula M.D. on 02/08/2017 at 11:01
[2017-02-08] MEDS: cefTRIAXone Inj 2,000 MG in Dextrose 5% Minibag Plus 50 ML IV SCH (10:13)
--- NOTE | 2017-02-08 11:27 | NUR ---
NUTRITION FOLLOW-UP: Assess: 66 YO M admitted to CCU with AMS, rhabdomyolysis, and amphetamine abuse; intubated for airway protection and resolution of extreme agitation. Pt successfully extubated yesterday; unable to pass swallow evaluation today due to somnolence. Bowel resolution successful; BM x 2 today. Enteral feeding provided for 3 days at reduced rate, insufficient to meet nutrient needs to any significant extent. PMHX: Unknown, ETOH, THC, methamphetamine, amphetamine, hepatitis C. DIET: NPO. NUTRITION SUPPORT DISCONTINUED: Jevity 1.5 @ 10 ml/hr. LABS: BUN 5, Cr 0.32, Glu 107, Ca 7.6, Phos 1.7, Total Bili 1.4, AST 69, PAB 5. MEDICATIONS: Reviewed. Precedex, ativan, fentanyl, thiamine, lactulose. GI: BM x 2 today. SKIN: No issues noted. ANTHROPOMETRICS: Wt: 83.6 kg, BMI 28.1 kg/m2, Admit wt: 76.6 kg. ESTIMATED NEEDS: Calories: 4660-0444 kcal/day (20-25 kcal/kg BW) Protein: 115-138 g/day (1.5-1.8 g/kg BW) Fluids: 4459-6893 ml/day (25-30 ml/kcal) NUTRITION DIAGNOSIS: 1) Inadequate oral intake related to decreased ability to consume sufficient energy as evidenced by NPO status - PERSISTS. INTERVENTION: 1) In the event pt. unable to pass swallow evaluation tomorrow, strongly recommend restarting enteral feeding to mitigate increased malnutrition status. MONITOR/EVALUATE: NPO status, POC, labs, GI/nutrition status. Follow per high nutrition risk guidelines.
--- NOTE | 2017-02-08 12:12 | NUR ---
Somnolence/failed swallow evaluation/incontinence Patient continued to be sleepy but bale to wake up to verbal stimulation. Patient was able to nod his head to yes/no question but not able to verbalized well. Patient was attempting to mouth words without sound but was falling asleep/closing his eyes quickly and often unable to finish. Patient failed his swallow evaluation by Speech today- he could only have one-two ice chips followed by oral care and suctioning Q2h. Stool guaiac came back as positive for occult blood -morning dose of SUBQ 5000units heparin was held. MD was made aware about this findings and the fact the patient will not be able to take PO/PO meds. MD discontinued SUBQ heparin and stated the patient on IV maintenance fluids ate- continue assessment. Patient unable to ask for help with a urinal, to be repositioned repositioning and remained incontinent of stool- MD aware- Cote remained in place, frequent rounds.
[2017-02-08] MEDS: 0.9% Sodium Chloride 1,000 ML IV SCH (12:18)
--- NOTE | 2017-02-08 15:14 | PCM.PNMED ---
Subjective Date of Service February 08, 2017 Subjective Mr. Baldemar Patton is a 66-year-old gentleman with history of alcohol abuse and current polysubstance use who was brought to the [facility] Emergency Department after being found eating shrubbery. Patient was aggressive and combative; subsequently sedated, paralyzed, and intubated for his and staff safety during further evaluation of acute encephalopathy. Patient successful extubated 02/07. Stool occult blood positive and subq heparin held. This morning patient is more alert but still quite lethargic and unable to communicate. He opens his eyes to voice and is able to follow commands. He appears comfortable and in no acute distress. Exam Vital Signs Vital Sign - Last Date Time Temp Pulse Resp B/P Pulse Ox O2 Delivery O2 Flow Rate FiO2 02/08/17 08:13 Supplement Oxygen 02/08/17 08:13 37.5 98 26 131/64 96 1.00 02/07/17 14:00 35 Intake and Output 02/07/17 02/07/17 02/08/17 Cumulative From/Thru 15:00 23:00 07:00 02/03/17 14:04 - 02/08/17 05:51 Intake Total 1363 ml 238 ml 45700 ml Output Total 2150 ml 675 ml 7625 ml Balance -787 ml -437 ml 49913 ml Intake IV Total 1305 ml 238 ml 55609 ml Tube Feeding 58 ml 535 ml Tube Irrigant 488 ml Output Urine Total 1950 ml 675 ml 7025 ml Gastric Drainage Total 200 ml 600 ml # Bowel Movements 1 2 3 Exam General: Elderly male in no acute distress, lethargic, opening eyes to voice and following basic commands. minimally interactive. HEENT: Normocephalic, atraumatic. Anicteric sclerae. Oral mucosa dry/pink Neck: No jugular venous distension, lymphadenopathy or thyromegaly. Cardiovascular: Regular rate and rhythm with no murmurs, rubs, or gallops appreciated Pulmonary: Clear to auscultation bilaterally with no crackles, wheezes, or rhonchi. Abdomen: Soft, mildly distended, appears nontender, no hepatosplenomegaly appreciated, bowel tones present Extremities: Mild non-pitting edema upper/lower extremities bilaterally. multiple scratches, cuts lower ext bilaterally. Skin: Normal temperature, turgor; no rashes or ulcerations. Neurological: Unable to assess due to patient condition. Appears to move all four extremities equally. Psychiatric: Difficult to asses due to patient condition. Patient appears somewhat agitated when receiving care. IVs and Medications Medications Reviewed: Medications were reviewed in detail Lab and Diagnostics Laboratory Tests Test 02/08/17 00:05 02/08/17 05:30 White Blood Count 3.6th/mm3 (3.8-10.1) 3.9th/mm3 (3.8-10.1) Red Blood Count 3.85mil/mm3 (4.40-5.80) 3.94mil/mm3 (4.40-5.80) Hemoglobin 11.0g/dL (13.8-17.2) 11.4g/dL (13.8-17.2) Hematocrit 32.9% (41.0-50.0) 33.4% (41.0-50.0) Mean Corpuscular Volume 85.5fL (81-100) 84.8fL (81-100) Mean Corpuscular Hemoglobin 28.6pg (27.0-35.0) 28.9pg (27.0-35.0) Mean Corpuscular Hemoglobin Concent 33.4% (32.0-37.0) 34.1% (32.0-37.0) Red Cell Distribution Width 15.8% (12.3-15.4) 15.6% (12.3-15.4) Platelet Count 69bil/L (150-400) 76bil/L (150-400) Neutrophils (%) (Auto) 54.1% (40-74) 45.9% (40-74) Lymphocytes (%) (Auto) 20.3% (14-46) 24.7% (14-46) Monocytes (%) (Auto) 18.7% (4-12) 22.4% (4-12) Eosinophils (%) (Auto) 6.3% (0-5) 6.4% (0-5) Basophils (%) (Auto) 0.3% (0-3) 0.3% (0-3) Sodium Level 138mEq/L (134-144) Potassium Level 3.5mEq/L (3.5-5.2) Chloride Level 104mEq/L (97-108) Carbon Dioxide Level 22mmol/L (18-29) Blood Urea Nitrogen 5mg/dL (8-27) Creatinine 0.32mg/dL (0.76-1.27) Estimat Glomerular Filtration Rate 298mL/min (>59) Glucose Level 107mg/dL (60-99) Calcium Level 7.6mg/dL (8.5-10.1) Phosphorus Level 1.7mg/dL (2.5-4.9) Magnesium Level 1.8mg/dL (1.6-2.6) Total Bilirubin 1.4mg/dL (0.0-1.2) Aspartate Amino Transf (AST/SGOT) 69U/L (0-50) Alanine Aminotransferase (ALT/SGPT) 38U/L (0-44) Alkaline Phosphatase 78U/L (25-160) Total Protein 4.9g/dL (6.4-8.4) Albumin 2.6g/dL (3.4-5.0) Result Diagram: 02/08/17 0530 02/08/17 0530 Microbiology 02/03/17 Blood Culture- 1 out of 4 grew gram positive cocci, coag negative 02/03/17 Gram Stain - CSF: No polys/organisms see; CSF clear, WBC 1, RBC 1, glucose 73, total protein 26 02/03/17 Streptococcus pneumoniae Ag Screen - negative 02/03/17 Urine culture- no growth 02/03/17 HIV nonreactive 02/03/17 Hepatitis C antibody- positive 02/03/17 Hepatitis A-negative 02/03/17 Hepatitis B-negative 02/04/17 MRSA screen-negative. X-Rays, CTs and MRIs (02/03/17) X-RAY CHEST ONE VIEW, PORTABLE IMPRESSION: ET tube approximately 1.8 cm superior to the carlos and could be pulled back approximately 2 cm. Dictated and approved by: Lesley Cee MD, PhD on 02/03/2017 at 14:39 (02/03/17) CT BRAIN WITHOUT CONTRAST IMPRESSION: No acute intracranial disease process. Dictated and approved by: Lesley Cee MD, PhD on 02/03/2017 at 14:56 (02/04/17) US ABDOMEN IMPRESSION: 1. Study is limited. There is cholelithiasis with no sonographic evidence of acute cholecystitis. 2. Fatty infiltration of an otherwise sonographically normal liver. Dictated and approved by: Claudio Arambula M.D. on 02/04/2017 at 8:59 (02/05/17) X-RAY CHEST ONE VIEW, PORTABLE IMPRESSION: Left basilar atelectasis versus aspiration or pneumonia. Correlate clinically. Interpreted and approved by: Devora Rodrigez MD on 02/05/2017 at 8:19 (02/06/17) X-RAY CHEST ONE VIEW, PORTABLE IMPRESSION: Increasing bibasilar atelectasis versus aspiration or pneumonia. Correlate clinically. Interpreted: Devora Rodrigez MD on 02/06/2017 at 9:29 Assessment & Plan 66-year-old gentleman with history of alcohol abuse and current polysubstance use who was brought to the [facility] Emergency Department after [place]ub[place]. Patient was aggressive and combative; subsequently sedated, paralyzed, and intubated for his and staff safety during further evaluation of acute encephalopathy. Acute encephalopathy, present on admission. Active. -Likely secondary to polysubstance use and potentially hepatic encephalopathy or occult infection. -Ammonia elevated and hepatosteatosis noted on abdominal US consistent with hepatic encephalopathy. -Hepatitis C positive, HIV nonreactive. QuantiFERON gold -negative. -Lactate normalized, procalcitonin trended down. Antibiotics discontinued (02/08) . -Continue thiamine, lactulose -Discontinue all sedating medications Possible GI bleed, acute. Likely present on admission. Active. -Stool guiaic positive. -Continue pantoprazole, 40mg IV daily. -IV fluids, NS at 80mls/hr -Keep NPO until more awake. Patient failed swallow eval. -Continue to hold subq Heparin -Follow H/H Elevated liver enzymes, present on admission. Improving. -Likely secondary to substance abuse and hepatitis C. -Abd US, as above. -PT/INR 13.4/1.25 -Follow CMP -Will need outpatient followup for positive HepC antibody. Thrombocytopenia, present on admission. Active. -Likely secondary to ongoing alcohol dependence -Follow CBC -Management as above. Anemia, present on admission. Active. -Likely multifactorial, due to possible alcohol dependence, poor nutritional status. -Continue to monitor with further evaluation and treatment as needed Rhabdomyolysis, present on admission. Resolved. -Met criteria with creatine kinase elevated 5 times normal, received 2L NS. -Creatinine kinase trended down History of alcohol abuse, present on admission. Active -Previous Emergency Department in 2005 was for acute alcohol intoxication and injury related to same -Elevated liver enzymes consistent with continuous alcohol dependence -Patient currently off all sedating medications. -Continue to avoid sedating medications. Polysubstance use, present on admission. Active. -Urine drug screen in the ED positive for amphetamine, methamphetamine, and marijuana -Continue supportive care during acute intoxication/withdrawal. -Chemical dependency screening and counseling as able/desired Multiple skin lesions, present on admission. Active. -Wound Care as needed -GI prophylaxis with PPI -No acetaminophen ordered, given elevated liver function tests GI Prophylaxis: Proton Pump Inhibitor VTE Prophylaxis: Sub-Q Heparin (Unfractionated) VTE Mechanical Devices: Intermittant Pneumatic CD Resuscitation Status: CPR: Attempt Resuscitation Attending Statement Patient seen and examined with house staff. Agree with all attached documentation. Patito Herrera DO February 08, 2017 08:45 Juliano Rodriguez MD February 09, 2017 07:42
[2017-02-09] VITALS (7 sets, daily range): BP systolic 138–159; BP diastolic 74–87; PULSE 77–92; RESP 16–26; O2SAT 94–99
[2017-02-09] MEDS: 0.9% Sodium Chloride 1,000 ML IV SCH ×2 (00:43→13:03)
--- NOTE | 2017-02-09 02:26 | NUR ---
MENTATION / SKIN Patient drowsy, opens eyes w/ verbal stimulation. Responded "[place]" when asked if he knew where he was. Denies pain/discomfort. Able to answer yes/no questions appropriately. Requesting "water, water" frequently thru NOC. ice chips and oral care per report. Tolerated well, by mid shift able to give a stronger cough, able to clear own secretions. Unable to lift arms or to hold a washcloth to wash his face. Continues to be very weakened. RUE 3lumen picc dressing is intact, small amount drainage noted under dressing. checkout operator notified, recommends IV therapy to f/u in AM. will pass on to day shift RN. Turned Q2 hours thru [facility], supported w/ pillows. Small amount of mucus w/ blood from rectal area. bedding and attends changed, skin barrier cream applied. BS at 0200 is 100. continues w/ NPO x ice chips/oral care. CTM for changes. Addendum: 02/09/17 at 0630 by ALEXIS SANCHEZ RN 0600: dressings changed on bilat forearms, areas cleansed w/ NS, new mepilex applied, timed/dated. House lotion applied to hands and arms. Voice mail to IV dept re: PICC line dressing/insertion site.
[2017-02-09 05:16] LABS: BASOPHILS % (AUTO) 0.5 % (0-3); EOSINOPHILS % (AUTO) 5.9 % (0-5); MONOCYTES % (AUTO) 15.5 % (4-12); Mean Corpuscular Volume 87.2 fL (81-100); NEUTROPHILS % (AUTO) 62.9 % (40-74); Platelet Count 75 bil/L (150-400)
[2017-02-09 05:48] LABS: Magnesium 1.8 mg/dL (1.6-2.6); Phosphorus 1.8 mg/dL (2.5-4.9)
[2017-02-09] MEDS ORDERED: Potassium Phos (mEq) Inj 40 MEQ in Dextrose 5% 500 ML IV ONE (07:20)
--- NOTE | 2017-02-09 08:08 | DRSVH ---
PROCEDURE: X-RAY CHEST ONE VIEW, PORTABLE ([id number]) INDICATIONS: eval PNA/fluid TECHNIQUE: One view of the chest was acquired. COMPARISON: [facility], CR, XR CHEST 1VW (PORTABLE), 02/08/2017, 4:47. [facility], CR, XR CHEST 1VW (PORTABLE), 02/07/2017, 15:48. FINDINGS: Surgical changes and devices: Right arm PICC is present, tip of which is in the mid SVC. Lungs and pleura: No pleural effusions or pneumothorax. Decreased, mild patchy right greater than le ft bibasilar pneumonia. Mediastinum: Mediastinal contours appear normal. Heart size is normal. Bones and chest wall: No suspicious bony lesions. Overlying soft tissues appear unremarkable. IMPRESSION: Resolving bibasilar pneumonia. Follow up plain films of the chest are recommended to ensu re resolution, and to exclude underlying or central malignancy. Dictated by: John Stewart M.D. on 02/09/2017 at 8:06 Approved by: John Stewart M.D. on 02/09/2017 at 8:07
[2017-02-09] MEDS: Lactulose 20 Gm/30 mL 30 mL Syrup TUBE SCH ×2 (08:30→21:08)
[2017-02-09] MEDS: Pantoprazole 4 mg/mL 10 mL Inj IVPUSH SCH (10:08)
[2017-02-09] MEDS: cefTRIAXone Inj 2,000 MG in Dextrose 5% Minibag Plus 50 ML IV SCH (10:09)
--- NOTE | 2017-02-09 10:29 | NUR ---
NUTRITION FOLLOW-UP: Assess: 66 YO M admitted to CCU with AMS, rhabdomyolysis, and amphetamine abuse; intubated for airway protection and resolution of extreme agitation. Pt successfully extubated 02/07; unable to pass swallow evaluation until this morning. Stimulation diet ordered with nectar thick liquids. Enteral feeding was provided for 3 days at reduced rate, insufficient to meet nutrient needs to any significant extent. Stimulation diet consists of only 2 pureed items per tray. Bowel resolution successful; BM x 2 yesterday. PMHX: Unknown, ETOH, THC, methamphetamine, amphetamine, hepatitis C. DIET: Stimulation, nectar thick liquids. PO intake not yet recorded. NUTRITION SUPPORT DISCONTINUED: Jevity 1.5 @ 10 ml/hr. LABS: K+ 3.4, Cr < 0.30, Glu 107, A1c 5.5, Ca 7.2, Phos 1.8, AST 60, Alb 2.4., PAB 5. MEDICATIONS: Reviewed. Lactulose. GI: BM x 2 yesterday. SKIN: No issues noted. ANTHROPOMETRICS: Wt: 82.4 kg, BMI 27.0 kg/m2, Admit wt: 76.6 kg. ESTIMATED NEEDS: Calories: 2678-6946 kcal/day (20-25 kcal/kg BW) Protein: 115-138 g/day (1.5-1.8 g/kg BW) Fluids: 1070-1640 ml/day (25-30 ml/kcal) NUTRITION DIAGNOSIS: 1) Inadequate oral intake related to decreased ability to consume sufficient energy as evidenced by NPO status - HOPEFULLY IMPROVED WITH DIET ADVANCE TO STIMULATION. INTERVENTION: 1) In the event diet unable to be advanced tomorrow, strongly recommend restarting enteral feeding to mitigate increased malnutrition status. 2) Once diet advanced beyond stimulation texture, will add supplements to trays to mitigate advancing malnutrition. MONITOR/EVALUATE: Diet tolerance / advance, PO intake, POC, labs, GI/nutrition status. Follow per high nutrition risk guidelines.
--- NOTE | 2017-02-09 11:50 | PCM.PNMED ---
Subjective Date of Service February 09, 2017 Subjective Mr. Baldemar Patton is a 66-year-old gentleman with history of alcohol abuse and polysubstance use who was brought to the Emergency Department after being found eating shrubbery. Patient was aggressive and combative; subsequently sedated, paralyzed, and intubated for his and staff safety. Admitted for further evaluation and management of acute encephalopathy. No acute events overnight. Patient is awake and alert to person,time and place this morning. However, he does not remember the events that led up to this admission and when asked what is the last thing that you remember, states that he 'doesn't know and that it's a mystery'. Unable to obtain complete review of systems due to patient condition. Currently denies chest pain, difficulty breathing, nausea or vomiting. Extubated 02/07. Guaiac + on 02/07 and subq heparin has been on hold. Exam Vital Signs Vital Sign - Last Date Time Temp Pulse Resp B/P Pulse Ox O2 Delivery O2 Flow Rate FiO2 02/09/17 05:29 78 02/09/17 04:23 36.7 26 152/79 98 Nasal Cannula 2.00 02/07/17 14:00 35 Intake and Output 02/08/17 02/08/17 02/09/17 Cumulative From/Thru 15:00 23:00 07:00 02/03/17 14:04 - 02/09/17 06:07 Intake Total 1286 ml 1137 ml 76080 ml Output Total 1700 ml 1200 ml 80212 ml Balance -414 ml -63 ml 41815 ml Intake Oral 0 ml 0 ml IV Total 1286 ml 1137 ml 57666 ml Tube Feeding 535 ml Tube Irrigant 488 ml Output Urine Total 1700 ml 1200 ml 9925 ml Gastric Drainage Total 600 ml # Bowel Movements 0 3 Exam General: Elderly male in no acute distress, sleeping but awakes easily. Confused and somewhat lethargic and slurring his words. Appropriately interactive. HEENT: Normocephalic, atraumatic. Anicteric sclerae. Oral mucosa dry/pink Neck: No jugular venous distension, lymphadenopathy or thyromegaly. Cardiovascular: Regular rate and rhythm with no murmurs, rubs, or gallops appreciated Pulmonary: Clear to auscultation bilaterally with no crackles, wheezes, or rhonchi. Abdomen: Soft, mildly distended, appears nontender, no hepatosplenomegaly appreciated, bowel tones present Extremities: Mild non-pitting edema upper/lower extremities bilaterally. multiple scratches, cuts lower ext bilaterally. Skin: Normal temperature, turgor; no rashes or ulcerations. Neurological: Grossly intact, no focal deficits appreciated. Limited exam due to patient cooperation. Appears to move all four extremities equally. Psychiatric: Difficult to asses, lethargic and confused but oriented to person, time and place. No memory of events leading up to hospital admission. IVs and Medications Medications Reviewed: Medications were reviewed in detail Lab and Diagnostics Laboratory Tests Test 02/09/17 05:10 White Blood Count 3.9th/mm3 (3.8-10.1) Red Blood Count 3.66mil/mm3 (4.40-5.80) Hemoglobin 10.6g/dL (13.8-17.2) Hematocrit 31.9% (41.0-50.0) Mean Corpuscular Volume 87.2fL (81-100) Mean Corpuscular Hemoglobin 29.0pg (27.0-35.0) Mean Corpuscular Hemoglobin Concent 33.2% (32.0-37.0) Red Cell Distribution Width 15.4% (12.3-15.4) Platelet Count 75bil/L (150-400) Neutrophils (%) (Auto) 62.9% (40-74) Lymphocytes (%) (Auto) 15.2% (14-46) Monocytes (%) (Auto) 15.5% (4-12) Eosinophils (%) (Auto) 5.9% (0-5) Basophils (%) (Auto) 0.5% (0-3) Sodium Level 138mEq/L (134-144) Potassium Level 3.4mEq/L (3.5-5.2) Chloride Level 104mEq/L (97-108) Carbon Dioxide Level 22mmol/L (18-29) Blood Urea Nitrogen 6mg/dL (8-27) Creatinine < 0.30mg/dL (0.76-1.27) Estimat Glomerular Filtration Rate 321mL/min (>59) Glucose Level 107mg/dL (60-99) Calcium Level 7.3mg/dL (8.5-10.1) Phosphorus Level 1.8mg/dL (2.5-4.9) Magnesium Level 1.8mg/dL (1.6-2.6) Total Bilirubin 1.1mg/dL (0.0-1.2) Aspartate Amino Transf (AST/SGOT) 60U/L (0-50) Alanine Aminotransferase (ALT/SGPT) 34U/L (0-44) Alkaline Phosphatase 69U/L (25-160) Ammonia 95ug/dL (18-53) Total Protein 4.9g/dL (6.4-8.4) Albumin 2.4g/dL (3.4-5.0) Procalcitonin 0.13ng/mL (0.00-0.08) Result Diagram: 02/09/17 0510 02/09/17 0510 Microbiology 02/03/17 Blood Culture- 1 out of 4 grew gram positive cocci, coag negative 02/03/17 Gram Stain - CSF: No polys/organisms see; CSF clear, WBC 1, RBC 1, glucose 73, total protein 26 02/03/17 Streptococcus pneumoniae Ag Screen - negative 02/03/17 Urine culture- no growth 02/03/17 HIV nonreactive 02/03/17 Hepatitis C antibody- positive 02/03/17 Hepatitis A-negative 02/03/17 Hepatitis B-negative 02/04/17 MRSA screen-negative. X-Rays, CTs and MRIs (02/03/17) CT BRAIN WITHOUT CONTRAST IMPRESSION: No acute intracranial disease process. Dictated and approved by: Lesley Cee MD, PhD on 02/03/2017 at 14:56 (02/04/17) US ABDOMEN IMPRESSION: 1. Study is limited. There is cholelithiasis with no sonographic evidence of acute cholecystitis. 2. Fatty infiltration of an otherwise sonographically normal liver. Dictated and approved by: Claudio Arambula M.D. on 02/04/2017 at 8:59 (02/05/17) X-RAY CHEST ONE VIEW, PORTABLE IMPRESSION: Left basilar atelectasis versus aspiration or pneumonia. Correlate clinically. Interpreted and approved by: Devora Rodrigez MD on 02/05/2017 at 8:19 (02/07/17) X-RAY CHEST ONE VIEW, PORTABLE IMPRESSION: Interval decrease in air space opacity within the right upper lobe otherwise persistent bilateral opacities with appearance suggesting atelectasis and/or pneumonia. Correlate clinically. Dictated and approved by: Lukasz Lovell MD on 02/07/2017 (02/08/17) X-RAY CHEST ONE VIEW, PORTABLE IMPRESSION: 1. Slight increase in lung volumes otherwise persistent bilateral pulmonary opacities suggesting atelectasis and or pneumonia. 2. Small effusions persist. Dictated and approved by: Claudio Arambula MD on 02/08/2017 (02/09/17) X-RAY CHEST ONE VIEW, PORTABLE IMPRESSION: Resolving bibasilar pneumonia. Follow up plain films of the chest are recommended to ensure resolution, and to exclude underlying or central malignancy. Dictated and approved by: John Stewart M.D. on 02/09/2017 at 8:06 Assessment & Plan Mr. Baldemar Patton is a 66-year-old gentleman with history of alcohol abuse and polysubstance use who was brought to the Emergency Department after being found eating shrubbery. Patient was aggressive and combative; subsequently sedated, paralyzed, and intubated for his and staff safety. Admitted for further evaluation and management of acute encephalopathy. Extubated 02/07. Acute encephalopathy, present on admission. Improving. -Likely secondary to polysubstance use and potentially hepatic encephalopathy and occult infection. -Ammonia elevated and hepatosteatosis noted on abdominal US consistent with hepatic encephalopathy. -Hepatitis C positive, HIV nonreactive. QuantiFERON gold -negative. -Lactate normalized, procalcitonin trended down. Antibiotics discontinued (02/08) . -Continue thiamine, lactulose Possible GI bleed, acute. Likely present on admission. Stable -Stool guiaic positive. No signs/symptoms of active bleeding. -H/H stable. 10.6/31.9 -Continue pantoprazole, 40mg IV daily. -IV fluids, NS at 80mls/hr -Diet advanced per Speech -Resume subq Heparin for DVT prophylaxis -Monitor for bleeding -Follow H/H Elevated liver enzymes, present on admission. Improving. -Likely secondary to substance abuse and hepatitis C. -Abd US, as above. -PT/INR 13.4/1.25 -Follow CMP -Will need outpatient followup for positive HepC antibody. Thrombocytopenia, present on admission. Stable -Likely secondary to ongoing alcohol dependence -Follow CBC -Management as above. Anemia, present on admission. Stable -Likely multifactorial, due to possible alcohol dependence, poor nutritional status. -Continue to monitor with further evaluation and treatment as needed History of alcohol abuse, present on admission. Active -Previous Emergency Department in 2005 was for acute alcohol intoxication and injury related to same -Elevated liver enzymes consistent with continuous alcohol dependence -Patient currently off all sedating medications. -Continue to avoid sedating medications. -Social Work consulted. Polysubstance use, present on admission. Active. -Urine drug screen in the ED positive for amphetamine, methamphetamine, and marijuana -Continue supportive care during acute intoxication/withdrawal. -Chemical dependency screening and counseling as able/desired Multiple skin lesions, present on admission. Stable -Wound Care as needed Disposition: Patient will likely need 2-3 more days of inpatient monitoring pending resolution of encephalopathy. GI Prophylaxis: Proton Pump Inhibitor VTE Prophylaxis: Sub-Q Heparin (Unfractionated) VTE Mechanical Devices: Intermittant Pneumatic CD Resuscitation Status: CPR: Attempt Resuscitation Attending Statement Patient seen and examined with house staff. Agree with all attached documentation. Patito Herrera DO February 09, 2017 07:31 Juliano Rodriguez MD February 10, 2017 07:34
--- NOTE | 2017-02-09 15:26 | NUR ---
Social Work Note: Continued D/C Planning Data& Assessment: EMR reviewed. Baldemar Bentley is a 66 year old male admitted on 02/03/2017 for AMS and amphetamine abuse. Pt is on day 6 of hospitalization per H&P. Pt has been extubated. Per MD, pt is not oriented and is not appropriate for SW follow up at this time. SW to follow up with pt pending MD orders. SW to continue to follow. Plan: Pt is not appropriate for SW follow up at this time. SW to follow up with pt pending MD orders. SW to continue to follow. Radha Lerma, MAJOR ACCOUNT REPRESENTATIVE
[2017-02-09] MEDS: Heparin 5,000 Unit/mL Inj SUBQ SCH (18:11)
--- NOTE | 2017-02-09 19:17 | NUR ---
Tele/O2/Mentation No reports of chest pain/pressure/discomfort. Tele SR 70s-90s with a small IVCD. No reports of SOB, SPO2 mid to high 90s on RA. RN notes frequent cough, patient denies sputum production. No reports of nausea, no emesis. Patient denies abdominal pain, RN notes patient winces with auscultation of bowel tones. Cote patent draining cloudy lilia urine with pink tinge to gravity.Patient is drowsy but oriented x3. MARTIN, bilateral upper extremities moderately weaker than lower extremities and needs assistance moving arms/hands. Reports full sensation. Generalized weakness. Int:
[2017-02-09] MEDS ORDERED: Potassium Phos (mMol) Inj 30 MMOL in Dextrose 5% 500 ML IV ONE (20:00)
[2017-02-10] VITALS (9 sets, daily range): BP systolic 117–173; BP diastolic 73–86; PULSE 67–90; RESP 16–24; O2SAT 96–99
[2017-02-10] MEDS: Heparin 5,000 Unit/mL Inj SUBQ SCH ×3 (00:30→16:01)
[2017-02-10] MEDS: 0.9% Sodium Chloride 1,000 ML IV SCH ×2 (00:34→16:08)
--- NOTE | 2017-02-10 05:50 | NUR ---
Mentation/ Phosphorus Pt A/ox3- delayed and forgetful at times. Swallow screen passed on day shift and pt placed on Stim, nectar thick liquids. Lactulose given at HS- pt tolerated well- no BM. HS shift repot low Phosphorus reported, notified and orders received for replacement. AM labs redrawn pending results.
[2017-02-10 05:58] LABS: BASOPHILS % (AUTO) 0.5 % (0-3); EOSINOPHILS % (AUTO) 7.9 % (0-5); Mean Corpuscular Hemoglobin 28.5 pg (27.0-35.0); Mean Corpuscular Volume 86.4 fL (81-100); NEUTROPHILS % (AUTO) 50.2 % (40-74); Platelet Count 82 bil/L (150-400)
[2017-02-10] MEDS: Pantoprazole 4 mg/mL 10 mL Inj IVPUSH SCH (07:47)
[2017-02-10] MEDS: Lactulose 20 Gm/30 mL 30 mL Syrup TUBE SCH (07:53)
--- NOTE | 2017-02-10 10:36 | PCM.PNMED ---
Subjective Date of Service February 10, 2017 Subjective He is much more alert today. He denies any chest pain, cough, abdominal pain, nausea, headache. He is alert and oriented 3. He states he is eating blackberry leaves because a friend have asked him to. 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 Lives in [place] with a friend. No overnight events noted. Exam Vital Signs Vital Sign - Last Date Time Temp Pulse Resp B/P Pulse Ox O2 Delivery O2 Flow Rate FiO2 02/10/17 08:30 36.9 73 18 161/82 99 Room Air 02/09/17 04:23 2.00 02/07/17 14:00 35 Intake and Output 02/09/17 02/09/17 02/10/17 Cumulative From/Thru 15:00 23:00 07:00 02/03/17 14:04 - 02/10/17 06:06 Intake Total 1630 ml 2167 ml 70312 ml Output Total 1100 ml 3000 ml 05595 ml Balance 530 ml -833 ml 40511 ml Intake Oral 350 ml 820 ml 1170 ml IV Total 1280 ml 1347 ml 25484 ml Tube Feeding 535 ml Tube Irrigant 488 ml Output Urine Total 1100 ml 3000 ml 28529 ml Gastric Drainage Total 600 ml # Bowel Movements 3 Exam Alert and oriented -3, no distress. Fluent speech Anicteric sclera. Lungs are clear with normal rate and effort Heart is regular without murmur gallop or rub Abdomen soft nontender, flat Extremities are free of edema. Skin is free of rash or lesions. Right arm hematoma below the PICC and above the elbow with minimal induration. IVs and Medications Medications Reviewed: Medications were reviewed in detail Lab and Diagnostics Result Diagram: 02/10/17 0541 02/10/17 0541 Microbiology 02/03/17 Blood Culture- 1 out of 4 grew gram positive cocci, coag negative 02/03/17 Gram Stain - CSF: No polys/organisms see; CSF clear, WBC 1, RBC 1, glucose 73, total protein 26 02/03/17 Streptococcus pneumoniae Ag Screen - negative 02/03/17 Urine culture- no growth 02/03/17 HIV nonreactive 02/03/17 Hepatitis C antibody- positive 02/03/17 Hepatitis A-negative 02/03/17 Hepatitis B-negative 02/04/17 MRSA screen-negative. X-Rays, CTs and MRIs (02/03/17) CT BRAIN WITHOUT CONTRAST IMPRESSION: No acute intracranial disease process. Dictated and approved by: Lesley Cee MD, PhD on 02/03/2017 at 14:56 (02/04/17) US ABDOMEN IMPRESSION: 1. Study is limited. There is cholelithiasis with no sonographic evidence of acute cholecystitis. 2. Fatty infiltration of an otherwise sonographically normal liver. Dictated and approved by: Claudio Arambula M.D. on 02/04/2017 at 8:59 (02/05/17) X-RAY CHEST ONE VIEW, PORTABLE IMPRESSION: Left basilar atelectasis versus aspiration or pneumonia. Correlate clinically. Interpreted and approved by: Devora Rodrigez MD on 02/05/2017 at 8:19 (02/07/17) X-RAY CHEST ONE VIEW, PORTABLE IMPRESSION: Interval decrease in air space opacity within the right upper lobe otherwise persistent bilateral opacities with appearance suggesting atelectasis and/or pneumonia. Correlate clinically. Dictated and approved by: Lukasz Lovell MD on 02/07/2017 (02/08/17) X-RAY CHEST ONE VIEW, PORTABLE IMPRESSION: 1. Slight increase in lung volumes otherwise persistent bilateral pulmonary opacities suggesting atelectasis and or pneumonia. 2. Small effusions persist. Dictated and approved by: Claudio Arambula MD on 02/08/2017 (02/09/17) X-RAY CHEST ONE VIEW, PORTABLE IMPRESSION: Resolving bibasilar pneumonia. Follow up plain films of the chest are recommended to ensure resolution, and to exclude underlying or central malignancy. Dictated and approved by: John Stewart M.D. on 02/09/2017 at 8:06 Assessment & Plan Mr. Baldemar Patton is a 66-year-old gentleman with history of alcohol abuse and polysubstance use who was brought to the Emergency Department after being found eating shrubbery. Patient was aggressive and combative; subsequently sedated, paralyzed, and intubated for his and staff safety. Admitted for further evaluation and management of acute encephalopathy. Extubated 02/07. Acute encephalopathy, present on admission. Rapidly Improving. -Likely secondary to polysubstance use and potentially hepatic encephalopathy and occult infection. -Ammonia elevated and hepatosteatosis noted on abdominal US consistent with hepatic encephalopathy. -Hepatitis C positive, HIV nonreactive. QuantiFERON gold -negative. -Lactate normalized, procalcitonin trended down. Antibiotics discontinued (02/08) . -Continue thiamine, lactulose Possible GI bleed, acute. Likely present on admission. Stable -Stool guiaic positive. No signs/symptoms of active bleeding. -H/H stable. 10.6/31.9 -Continue pantoprazole, 40mg IV daily. -IV fluids, NS at 80mls/hr -Diet advanced per Speech -Resume subq Heparin for DVT prophylaxis -Monitor for bleeding -Follow H/H . This is been stable. He did have some possible blood mixed in his stool this morning. We will follow this clinically. Elevated liver enzymes, present on admission. Improving. -Likely secondary to substance abuse and hepatitis C. -Abd US, as above. -PT/INR 13.4/1.25 -Follow CMP -Will need outpatient followup for positive HepC antibody. Thrombocytopenia, present on admission. Stable -Likely secondary to ongoing alcohol dependence -Follow CBC -Management as above. This remained stable. Anemia, present on admission. Stable -Likely multifactorial, due to possible alcohol dependence, poor nutritional status. -Continue to monitor with further evaluation and treatment as needed, this remains stable. History of alcohol abuse, present on admission. Active -Previous Emergency Department in 2005 was for acute alcohol intoxication and injury related to same -Elevated liver enzymes consistent with continuous alcohol dependence -Patient currently off all sedating medications. -Continue to avoid sedating medications. -Social Work consulted. Polysubstance use, present on admission. Active. -Urine drug screen in the ED positive for amphetamine, methamphetamine, and marijuana -Continue supportive care during acute intoxication/withdrawal. -Chemical dependency screening and counseling as able/desired Multiple skin lesions, present on admission. Stable -Wound Care as needed Disposition: Patient will likely build discharge in approximately 2 days, February 14 back to his home. We will begin moving around more today. GI Prophylaxis: Proton Pump Inhibitor VTE Prophylaxis: Sub-Q Heparin (Unfractionated) VTE Mechanical Devices: Intermittant Pneumatic CD Resuscitation Status: CPR: Attempt Resuscitation Juliano Rodriguez MD February 10, 2017 10:36
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
--- NOTE | 2017-02-10 15:54 | NUR ---
Evaluation completed. Please go to "Notes" then click on "Assessments and Notes" (bottom left corner of screen). Then select appropriate discipline tab on top of screen.
--- NOTE | 2017-02-10 16:26 | NUR ---
Bowel movements/call light Pt had around 7 loose bowel movements this shift. Many of them were shelter incontinent, one of them was completely incontinent. notified. Pt would reach his hands into the mess to try to clean it but then would spread the mess further. Education provided. Pt appeared embarrassed and upset stating "this is not okay, this is not okay." Some BMs had visible blood, guiacs sent. Pt tried to self transfer a couple times in the morning but then used his call light appropriately for the rest of the shift. Young alarm remains in place.
[2017-02-10] MEDS ORDERED: Potassium Phos (mEq) Inj 40 MEQ in Dextrose 5% 500 ML IV ONE (17:00)
[2017-02-11] VITALS (9 sets, daily range): BP systolic 112–151; BP diastolic 65–83; PULSE 67–107; RESP 16–21; O2SAT 73–98
[2017-02-11] MEDS: Heparin 5,000 Unit/mL Inj SUBQ SCH ×4 (00:08→23:12)
[2017-02-11] MEDS ORDERED: Clindamycin Inj 600 MG in IV Premix 1 EACH IV SCH (00:30)
[2017-02-11] MEDS: 0.9% Sodium Chloride 1,000 ML IV SCH (04:48)
[2017-02-11 05:15] LABS: Phosphorus 2.4 mg/dL (2.5-4.9)
--- NOTE | 2017-02-11 06:39 | NUR ---
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
[2017-02-11 07:23] LABS: EOSINOPHILS % (AUTO) 5.6 % (0-5); MONOCYTES % (AUTO) 15.4 % (4-12); Mean Corpuscular Hemoglobin 28.2 pg (27.0-35.0); Mean Corpuscular Volume 85.9 fL (81-100); NEUTROPHILS % (AUTO) 54.2 % (40-74); Platelet Count 107 bil/L (150-400)
[2017-02-11] MEDS: Pantoprazole 4 mg/mL 10 mL Inj IVPUSH SCH (08:19)
[2017-02-11] MEDS ORDERED: Potassium Chloride 20 mEq SR Tablet PO ONE ×2 (08:55→09:05)
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
[2017-02-12 05:04] VITALS: BP 121/58; PULSE 97; RESP 20; O2SAT 98
[2017-02-12 05:50] LABS: BASOPHILS % (AUTO) 0.6 % (0-3); EOSINOPHILS % (AUTO) 4.8 % (0-5); MONOCYTES % (AUTO) 11.5 % (4-12); Mean Corpuscular Hemoglobin 29.1 pg (27.0-35.0); Mean Corpuscular Volume 85.8 fL (81-100); NEUTROPHILS % (AUTO) 58.4 % (40-74); Platelet Count 114 bil/L (150-400)
[2017-02-12 06:06] LABS: INR 1.25 ratio
[2017-02-12 06:07] LABS: Phosphorus 2.5 mg/dL (2.5-4.9)
--- NOTE | 2017-02-12 06:41 | NUR ---
Shift Note VS stable and afebrile. Tele DC'd. No c/o SOB, RA SpO2 sats 93-98%. Pt c/o chronic back pain at a 5/10, 3/10, and then 0/10; each time Pt declined any pain medication. Urinary output this shift 1650 mls with 4 loose BMs, guaiac sent to the lab.
[2017-02-12 09:07] VITALS: BP 137/81; PULSE 71; RESP 16; O2SAT 98
[2017-02-12] MEDS: Heparin 5,000 Unit/mL Inj SUBQ SCH ×2 (09:07→16:30)
[2017-02-12] MEDS: Pantoprazole 4 mg/mL 10 mL Inj IVPUSH SCH (09:07)
--- NOTE | 2017-02-12 11:14 | DRSVH ---
PROCEDURE: US VENOUS ARM DUPLEX UNILATERAL, RIGHT INDICATIONS: Possible SVT with PICC TECHNIQUE: Real-time imaging, as well as color and pulse Doppler interrogation, was performed of the right upper extremity deep veins from the inferior neck to the antecubital fossa. COMPARISON: None. FINDINGS: The internal jugular vein, visualized portions of the subclavian vein, axillary, and brach ial veins are free of intraluminal thrombus. Where physically possible, the veins are normally compr essible. Color and pulse Doppler demonstrate normal intraluminal flow, with expected phasicity and p ulsatility. Additional scanning of the cephalic and basilic veins of the superficial system demonstr ate normal compressibility, without thrombus. IMPRESSION: No DVT found right upper extremity. Dictated by: Narciso Wade M.D. on 02/12/2017 at 11:12 Approved by: Narciso Wade M.D. on 02/12/2017 at 11:13
--- NOTE | 2017-02-12 13:40 | NUR ---
NUTRITION FOLLOW-UP: Assess: 66 YO M admitted to CCU with AMS, rhabdomyolysis, and amphetamine abuse; intubated for airway protection and resolution of extreme agitation. Pt successfully extubated 02/07. His diet has been advanced to dysphagia mechanical with thin liquids 02/[address] His PO intake is fair at 25-100%. Wt is trending back down towards admit wt. Pt may have GI bleed so GI is being consulted today. PMHX: Unknown, ETOH, THC, methamphetamine, amphetamine, hepatitis C. DIET: Dysphagia Mechanical, PO 25-100% LABS: Reviewed. K 3.4, Bun 5, Air Conditioning Sheet Metal Installer .4, Glu 122, Ca 8.2, AST 85, ALT 48, Alb 2.9 MEDICATIONS: Reviewed. Lactulose GI: BM x 4 02/12. SKIN: Yrn 19 ANTHROPOMETRICS: Wt: 77.8 kg, BMI 26.1 kg/m2, Admit wt: 76.6 kg. ESTIMATED NEEDS: Calories: 1945-2335kcal/day (25-30kcal/kg) Protein: 80-95g/day (1.0-1.2g/kg) NUTRITION DIAGNOSIS: 1) Inadequate oral intake related to decreased ability to consume sufficient energy as evidenced by NPO status - IMPROVING INTERVENTION: 1) Continue to advance diet per ST 2) Will change supplement texture to thin liquids. MONITOR/EVALUATE: Diet tolerance / advance, PO intake, POC, labs, GI/nutrition status. Follow per moderate nutrition risk guidelines.
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
--- NOTE | 2017-02-12 16:14 | NUR ---
activity Pt up frequently in room, no complaints of SOB or nausea, on RA SATs in the high 90s, pt stated mild back pain, stated he did not need pain medication at this time. continuing to monitor
--- NOTE | 2017-02-12 16:16 | NUR ---
Social Work Note: Continued Discharge Planning Data& Assessment: SW recieved order to help coordinate establishment of primary care for pt and to re-engage pt regarding substance Use resources. SW met with pt at bedside to address this order. Pt explained he would be agreeable to go to the residency clinic for primary care across the street and that Saturday Afternoons would work best for him in terms of scheduling. Pt also accepted CD resources (resource list provided and AA as well as outpt tx options highlighted.) Pt also signed KES[facility] to speak with [facility] at bedside. [facility] Staff did meet with pt at bedside but pt stated he would like to complete bedside assessment tomorrow if possible. SW to notify [facility] staff if pt is still hospitalized tomorrow in order to complete bedside assessment. Pt denies any other needs at this time and confirmed he has transportation home when discharged. SW to continue to follow if any other needs arise. Plan: Anticipated discharge home via POV when medically ready. SW to ensure PCP appointment is scheduled at the residency clinic. SW to notify [facility] if pt is still hospitalized tomorrow in order to complete bedside assessment for treatment. Pt denies any other needs at this time. SW to continue to follow if any other needs arise. ROSEMARY Khanna
--- NOTE | 2017-02-12 18:02 | CONS ---
[address] [address] CONSULTATION REPORT PATIENT: CHELSY BASURTO : 1950 MR#: [id number] ADMIT: 02/03/2017 JOB ID: [id number] DATE OF SERVICE: REASON FOR CONSULTATION: It was my pleasure seeing this patient at [facility] for evaluation of blood in the stools. HISTORY OF PRESENT ILLNESS: This is a 66-year-old gentleman who came into the hospital last week. He presented with a past medical history of significant alcohol abuse; possibly polysubstance abuse, came to the emergency department because he was found at a local park eating shrubbery. When he came in, the patient was sedated, paralyzed, intubated at the time. When he was found, he was found to be belligerent and disoriented and history was not obtainable at the time. During the hospitalization, his mental status slowly improved. They attribute the mental status change to polysubstance abuse and possible occult infection. Eventually they found him to be hepatitis C positive and no source of an infection was noted, therefore antibiotics were discontinued. Also he was noted to have some blood in the stools. Typically what happened was that he goes to the bathroom to urinate and typically he has a small amount of stools. When he does have stools, he has a little bit of fresh blood coming out. This has been like this for a couple of years and nothing seems to make it better or worse and this has been his pattern. H and H has been stable around 10. He was given pantoprazole in the hospital and his hemoglobin remained stable. I was asked to see him today for possible colonoscopy. Also during the hospitalization, liver function test was elevated and was somewhat improving at the time. The liver function test was now worsening therefore he was informed to follow up with GI for possible hepatitis C treatment and he was also advised to stop drinking alcohol. Today, he says he feels fine. Denies any nausea, vomiting, abdominal pain. He again has little bit of blood in the stools and he informed me that this has been his pattern for several years. He said he never had a colonoscopy done before or upper endoscopy before. Never had history of peptic ulcer disease. PAST MEDICAL HISTORY: Blood in the stools. Anemia. Alcohol abuse, polysubstance abuse. PAST SURGICAL HISTORY: None. SOCIAL HISTORY: Tobacco and alcohol use. FAMILY HISTORY: Noncontributory. MEDICATIONS: Include pantoprazole, metoprolol, heparin, senna, Zofran and MiraLAX. PHYSICAL EXAMINATION: Patient is alert, oriented, does appear comfortable. Vitals include temp of 36.8, pulse 71, respirations 16, blood pressure 137/81. Head and neck: No icterus. Lungs: Clear. Cardiovascular: Regular rate and rhythm. Normal S1, S2. Abdomen is soft, nontender, nondistended with normoactive bowel sounds. Extremities: No pitting edema of the ankles. Skin shows no jaundice. LABORATORY DATA: Hemoglobin on February 09 was 10.6, hemoglobin today was 11.1. Platelets 114,000. White count 6300. INR 1.25. Sodium 140, potassium 3.4, BUN 5, creatinine 0.4. LFTs shows AST of 85, ALT of 48. When he first came in, total bili was 1.5, AST 120, ALT 52. IMPRESSION and plan: This is a 66-year-old gentleman with abnormal liver function test with underlying hepatitis C. However his platelets are improving probably because he is recovering from alcohol-induced toxicity. Does have anemia but MCV is normal. It appears that he has been having this red stool for several years and it has been a chronic issue. Differential for anemia includes gastrointestinal bleed, anemia of chronic disease, AVM peptic ulcer disease GI tumor. He is hemodynamically stable and no evidence of active gastrointestinal bleeding. Would like to proceed with a colonoscopy and if it is negative, will do an upper endoscopy. Since he ate today, would like to do the esophagogastroduodenoscopy tomorrow, and if the esophagogastroduodenoscopy is negative, would like to place on clear liquid diet and proceed with a colonoscopy. Since stable, if the patient does not wanted to this area in the hospital, I suggest that he follows up two weeks after discharge to the GI Clinic. Plan discussed with the internet technology manager on the service. RICK
--- NOTE | 2017-02-12 20:37 | NUR ---
discharge pervious RN went over discharge instructions and paper work with pt, IVT came and DCd picc line, night WEB SEARCH EVALUATOR escorted pt out to friends car. pt left with all belongings and all questions answered
--- NOTE | 2017-02-13 08:37 | NUR ---
Social Work Note: Discharge Pt discharged over night. SW unable to secure PCP follow up for pt prior to discharge. No phone number listed to contact pt on an oupt basis. ROSEMARY Khanna
== END 2017-02-12 19:45 | disposition home or self-care (01) ==
LOC: EDBD 14:02 → SED 14:02 → CCU 16:22 → PCC 02-08 11:24
PROVIDERS: ADMIT Internal Medicine; ATTEND Internal Medicine
PROC: 5A1945Z Respiratory Ventilation, 24-96 Consecutive Hours (ICD-10-PCS; principal; 2017-02-03)
PROC: 0BH17EZ Insertion of Endotracheal Airway into Trachea, Via Natural or Artificial Opening (ICD-10-PCS; 2017-02-03)
PROC: 009U3ZX Drainage of Spinal Canal, Percutaneous Approach, Diagnostic (ICD-10-PCS; 2017-02-03)
PROC: 4A033R1 Measurement of Arterial Saturation, Peripheral, Percutaneous Approach (ICD-10-PCS; 2017-02-03)
DX: K71.10 Toxic liver disease with hepatic necrosis, without coma (principal); M62.82 Rhabdomyolysis; E87.2 Acidosis; D69.6 Thrombocytopenia, unspecified; E87.8 Other disorders of electrolyte and fluid balance, not elsewhere classified; K92.1 Melena; F15.10 Other stimulant abuse, uncomplicated; F10.20 Alcohol dependence, uncomplicated; D64.9 Anemia, unspecified; L98.9 Disorder of the skin and subcutaneous tissue, unspecified; R45.1 Restlessness and agitation; B19.20 Unspecified viral hepatitis C without hepatic coma; D72.829 Elevated white blood cell count, unspecified; E88.09 Other disorders of plasma-protein metabolism, not elsewhere classified; F19.90 Other psychoactive substance use, unspecified, uncomplicated